=== PATIENT | female | born 1935 | race Hispanic/Latino ===

== ENCOUNTER 2018-01-19 00:46 | Emergency (ER) | payer OTHER ==
[~2018-01-19 00:46] MED LIST: ASPI81TA40 PO; CHOL200074 PO; INSU100I13 SQ; LOSA1TAB37 PO; METO-391 PO
[2018-01-19 01:30] LABS: BASOPHILS % (AUTO) 2.5 % (0.0-5.0); EOSINOPHILS % (AUTO) 2.7 % (0.0-8.0); HEMATOCRIT 34.8 % (36-48); LYMPHOCYTES % (AUTO) 37.7 % (21.0-51.0); MEAN CORPUSCULAR HGB CONC 34.7 g/dL (32.0-36.0); MEAN CORPUSCULAR VOLUME 92.3 fL (79-99); MONOCYTES % (AUTO) 9.1 % (3.0-13.0); PLATELET COUNT (AUTO) 320 K/uL (130-400); RED BLOOD CELL COUNT(AUTO) 3.77 MIL/uL (4.00-5.50); RED CELL DISTRIBUTION WIDTH 13.4 % (11.0-15.5); WHITE BLOOD COUNT (AUTO) 9.1 K/uL (4.8-10.8)
[2018-01-19 01:31] LABS: APPEARANCE,URINE Clear (CLEAR); BILIRUBIN,URINE Negative (NEGATIVE); COLOR,URINE Yellow (YELLOW); GLUCOSE, URINE (UA) Negative (NEGATIVE); KETONES,URINE Negative (NEGATIVE); LEUKOCYTE ESTERASE ,URINE Small (NEGATIVE); NITRATE,URINE Negative (NEGATIVE); OCCULT BLOOD,URINE Negative (NEGATIVE); PH,URINE 6.5 (5.0-8.0); PROTEIN,URINE Negative (NEGATIVE); UROBILINOGEN,URINE 0.2 mg/dL (0.2-1.0)
[2018-01-19 01:44] LABS: CREATININE 1.3 mg/dL (0.5-1.5); POTASSIUM 3.8 mmol/L (3.5-5.1)
[2018-01-19 01:48] LABS: BACTERIA,URINE Few /HPF (None Seen); MUCUS,URINE Moderate LPF (None Seen); RBC,URINE None Seen /HPF (0-1); SQUAMOUS EPITHELIAL CELL,UR Moderate /HPF (0-2)
[2018-01-19 01:56] LABS: INR 0.96 (0.85-1.15); PARTIAL THROMBOPLASTIN TIME 26.5 SEC (26.3-35.5); PROTHROMBIN TIME 10.1 SEC (9.6-11.6)
[2018-01-19 01:59] LABS: ALBUMIN 4.1 g/dL (3.5-5.0); B-TYPE NATRIURETIC PEPTIDE 99 pg/mL (0-100); BILIRUBIN,TOTAL 0.6 mg/dL (0.2-1.0); CREATINE KINASE MB 2.1 ng/mL (0.5-3.6); TOTAL PROTEIN, SERUM 8.4 g/dL (6.0-8.3)
== END 2018-01-19 02:19 | disposition home or self-care (01) ==
LOC: EDH 00:46
DX: I16.9 Hypertensive crisis, unspecified (principal); N28.9 Disorder of kidney and ureter, unspecified; E11.9 Type 2 diabetes mellitus without complications; E07.9 Disorder of thyroid, unspecified; Z88.0 Allergy status to penicillin; Z88.2 Allergy status to sulfonamides
CPT/HCPCS: 36415; 71045; 80053; 81001; 82550; 82553; 83880; 84484; 85025; 85610; 85730; 93005

== ENCOUNTER 2019-04-18 21:48 | Emergency (ER) | payer OTHER ==
[2019-04-18 22:42] LABS: BASOPHILS % (AUTO) 0.4 % (0.0-5.0); EOSINOPHILS % (AUTO) 1.9 % (0.0-8.0); HEMATOCRIT 35.4 % (36-48); LYMPHOCYTES % (AUTO) 26.2 % (21.0-51.0); MEAN CORPUSCULAR HEMOGLOBIN 31.6 pg (27.0-33.0); MEAN CORPUSCULAR HGB CONC 34.1 g/dL (32.0-36.0); MEAN CORPUSCULAR VOLUME 92.7 fL (79-99); MONOCYTES % (AUTO) 7.7 % (3.0-13.0); NEUTROPHILS % (AUTO) 63.8 % (40.0-77.0); PLATELET COUNT (AUTO) 258 K/uL (130-400); RED BLOOD CELL COUNT(AUTO) 3.82 MIL/uL (4.00-5.50); RED CELL DISTRIBUTION WIDTH 13.6 % (11.0-15.5); WHITE BLOOD COUNT (AUTO) 7.7 K/uL (4.8-10.8)
[2019-04-18 22:43] LABS: BILIRUBIN,URINE Negative (NEGATIVE); COLOR,URINE Yellow (YELLOW); GLUCOSE, URINE (UA) 500 mg/dL (NEGATIVE); KETONES,URINE Negative (NEGATIVE); LEUKOCYTE ESTERASE ,URINE Trace (NEGATIVE); NITRATE,URINE Negative (NEGATIVE); OCCULT BLOOD,URINE Nonhemolyzed Trace (NEGATIVE); PROTEIN,URINE POS 1+ mg/dL (NEGATIVE)
[2019-04-18 22:46] LABS: APPEARANCE,URINE CLEAR (CLEAR)
[2019-04-18 22:55] LABS: CREATININE 1.1 mg/dL (0.5-1.5); POTASSIUM 4.1 mmol/L (3.5-5.1)
[2019-04-18 22:59] LABS: ALBUMIN 3.9 g/dL (3.5-5.0); BILIRUBIN,TOTAL 0.7 mg/dL (0.2-1.0); TOTAL PROTEIN, SERUM 7.6 g/dL (6.0-8.3)
[2019-04-18 23:06] LABS: BACTERIA,URINE Rare /HPF (None Seen); RBC,URINE 0-1 /HPF (0-1)
[2019-04-18] MEDS ORDERED: SODIUM CHLORIDE 0.9% 500ML 500 ML IV ONE (23:18)
== END 2019-04-19 03:00 | disposition home or self-care (01) ==
LOC: EDH 21:48
DX: F43.22 Adjustment disorder with anxiety (principal); F32.89 Other specified depressive episodes; R55 Syncope and collapse; I10 Essential (primary) hypertension; E11.9 Type 2 diabetes mellitus without complications; E07.9 Disorder of thyroid, unspecified; Z88.0 Allergy status to penicillin; Z88.2 Allergy status to sulfonamides
CPT/HCPCS: 36415; 80053; 81001; 82550; 83605; 84484 ×2; 85025; 93005 ×2; 96360; 99285; J7040

== ENCOUNTER → 2020-03-10 | Outpatient (CLI) | payer OTHER | END | disposition home or self-care (01) | LOC: RAH 13:16 | PROVIDERS: ATTEND Internal Medicine | DX: I77.1 Stricture of artery (principal); E11.51 Type 2 diabetes mellitus with diabetic peripheral angiopathy without gangrene | CPT/HCPCS: 93926 ==

== ENCOUNTER 2020-10-09 19:28 | Inpatient (IN) | payer OTHER ==
[~2020-10-09] VITALS: Ht 149.9 cm; Wt 52.3 kg
[~2020-10-09 19:28] MED LIST changes: +CHLO25TA3 PO; -CHOL200074 PO; +CHOL500051 PO; +DOXY100T2 PO; +FLUC200T8 PO; +INSLAN SQ; -INSU100I13 SQ; +LEVO50TA11 PO; +LEVO750T46 PO; -LOSA1TAB37 PO; +VALS320T16 PO
[2020-10-09 19:52] LABS: BASOPHILS % (AUTO) 0.3 % (0.0-5.0); EOSINOPHILS % (AUTO) 0.1 % (0.0-8.0); LYMPHOCYTES % (AUTO) 6.6 % (21.0-51.0); MEAN CORPUSCULAR HGB CONC 36.2 g/dL (32.0-36.0); MEAN CORPUSCULAR VOLUME 82.9 fL (79-99); NEUTROPHILS % (AUTO) 76.4 % (40.0-77.0); NUCLEATED RED BLOOD CELLS 0.2 % (0.0-0.19); PLATELET COUNT (AUTO) 540 K/uL (130-400); RED CELL DISTRIBUTION WIDTH 12.5 % (11.0-15.5)
[2020-10-09 20:01] LABS: HEMATOCRIT 17.4 % (36-48)
[2020-10-09 20:02] LABS: WHITE BLOOD COUNT (AUTO) 31.3 K/uL (4.8-10.8)
[2020-10-09 20:08] LABS: INR 1.43 (0.85-1.15); PROTHROMBIN TIME 14.8 SEC (9.6-11.6)
[2020-10-09 20:10] LABS: PARTIAL THROMBOPLASTIN TIME 40.9 SEC (26.3-35.5)
[2020-10-09 20:18] LABS: ALBUMIN 2.5 g/dL (3.5-5.0); BILIRUBIN,TOTAL 1.7 mg/dL (0.2-1.0); CREATININE 1.3 mg/dL (0.5-1.5); TOTAL PROTEIN, SERUM 5.9 g/dL (6.0-8.3)
[2020-10-09 20:44] LABS: BAND NEUTROPHILS % (MANUAL) 14 % (0-2); EOSINOPHILS % (MANUAL) 1 % (1-6); LYMPHOCYTES % (MANUAL) 4 % (22-44); MAN.DIFF COMMENT-IMPRESSION MANUAL DIFFERENTIAL; MONOCYTES % (MANUAL) 4 % (2-9); SEGMENTED NEUTROPHILS % 77 % (40-70)
[2020-10-09] MEDS ORDERED: NITROGLYCERIN 0.4 MG SL TAB SL PRN (23:30)
[2020-10-09] MEDS ORDERED: LACTULOSE 20 GM/30 ML UDCUP PO PRN (23:30)
[2020-10-09] MEDS ORDERED: ONDANSETRON 4MG INJ IV PRN (23:30)
[2020-10-09] MEDS ORDERED: HYDRALAZINE 20MG/ML VIAL IV PRN (23:30)
[2020-10-09] MEDS ORDERED: ACETAMINOPHEN 325 MG TAB PO PRN (23:30)
[2020-10-09] MEDS: SODIUM CHLORIDE 3% 500 ML IV SCH (23:30)
[2020-10-09] MEDS ORDERED: MAG/ALUM/SIMETH 30 ML UDCUP PO PRN (23:30)
[2020-10-09] MEDS ORDERED: VANCOMYCIN 1G/250ML KIT 250 ML IV SCH (23:30)
[2020-10-09] MEDS ORDERED: DiphenhydrAMINE HCL 50 MG/ML VIAL IV PRN (23:30)
[2020-10-09] MEDS ORDERED: MAGNESIUM 2GM PREMIX 50ML 50 ML IV PRN (23:30)
[2020-10-09] MEDS ORDERED: GUAIFENESIN-DM 200/20 MG 10 ML PO PRN (23:30)
[2020-10-10] MEDS ORDERED: VANCOMYCIN 1G/250ML KIT 250 ML IV ONE (00:24)
[2020-10-10] MEDS ORDERED: MEROPENEM 1 GM VIAL ONE ×2 (00:24→21:02)
[2020-10-10] MEDS ORDERED: HYDRALAZINE 20MG/ML VIAL ONE (00:26)
[2020-10-10] MEDS ORDERED: 0.9%NACL 100ML 100 ML IV ONE (00:27)
[2020-10-10 00:43] LABS: B-TYPE NATRIURETIC PEPTIDE 1964 pg/mL (0-100)
[2020-10-10 02:00] LABS: APPEARANCE,URINE Clear (CLEAR); BILIRUBIN,URINE Negative (NEGATIVE); COLOR,URINE Yellow (YELLOW); GLUCOSE, URINE (UA) >=1000 mg/dL (NEGATIVE); KETONES,URINE Negative (NEGATIVE); LEUKOCYTE ESTERASE ,URINE Trace (NEGATIVE); NITRATE,URINE Negative (NEGATIVE); OCCULT BLOOD,URINE Large (NEGATIVE); PROTEIN,URINE POS 2+ mg/dL (NEGATIVE)
[2020-10-10 02:02] LABS: CREATININE,URINE RANDOM 58 mg/dL (30-135); POTASSIUM,URINE RANDOM 27 mmol/L (25-125); SODIUM,URINE RANDOM < 15 mmol/l (40-220)
[2020-10-10 02:17] LABS: BACTERIA,URINE None Seen /HPF (None Seen); RBC,URINE TNTC /HPF (0-1); WBC,URINE 0-1 /HPF (0-1)
[2020-10-10 03:19] LABS: BASOPHILS % (AUTO) 0.2 % (0.0-5.0); EOSINOPHILS % (AUTO) 0.5 % (0.0-8.0); LYMPHOCYTES % (AUTO) 5.5 % (21.0-51.0); MEAN CORPUSCULAR HEMOGLOBIN 30.8 pg (27.0-33.0); MEAN CORPUSCULAR HGB CONC 37.2 g/dL (32.0-36.0); MEAN CORPUSCULAR VOLUME 82.8 fL (79-99); MONOCYTES % (AUTO) 8.4 % (3.0-13.0); NEUTROPHILS % (AUTO) 78.9 % (40.0-77.0); NUCLEATED RED BLOOD CELLS 0.2 % (0.0-0.19); PLATELET COUNT (AUTO) 493 K/uL (130-400); RED BLOOD CELL COUNT(AUTO) 1.98 MIL/uL (4.00-5.50); RED CELL DISTRIBUTION WIDTH 12.7 % (11.0-15.5); WHITE BLOOD COUNT (AUTO) 29.3 K/uL (4.8-10.8)
[2020-10-10 03:23] LABS: HEMATOCRIT 16.4 % (36-48)
[2020-10-10 03:39] LABS: INR 1.5 (0.85-1.15); PROTHROMBIN TIME 15.5 SEC (9.6-11.6)
[2020-10-10 03:40] LABS: PARTIAL THROMBOPLASTIN TIME 41.7 SEC (26.3-35.5)
[2020-10-10] MEDS: FUROSEMIDE 20MG VIAL IV SCH (03:45)
[2020-10-10 03:46] LABS: ALBUMIN 2.4 g/dL (3.5-5.0); BILIRUBIN,TOTAL 1.9 mg/dL (0.2-1.0); CREATININE 1.4 mg/dL (0.5-1.5); MAGNESIUM 2.6 mg/dL (1.80-2.40); POTASSIUM 4.1 mmol/L (3.5-5.1); THYROID STIMULATING HORMONE 1.18 uIU/mL (0.36-3.74); TOTAL PROTEIN, SERUM 5.4 g/dL (6.0-8.3)
[2020-10-10] MEDS ORDERED: FUROSEMIDE 20MG VIAL ONE (05:37)
[2020-10-10] MEDS: LEVOTHYROXINE 50 MCG TABLET PO SCH (07:30)
[2020-10-10] MEDS: FAMOTIDINE 20MG VIAL IV SCH ×2 (09:00→21:00)
[2020-10-10] MEDS: FLUCONAZOLE 200 MG/NS 100 ML 100 ML IV SCH (09:00)
[2020-10-10] MEDS ORDERED: FAMOTIDINE 20MG VIAL IV ONE ×2 (09:19→21:02)
[2020-10-10] MEDS ORDERED: FLUCONAZOLE 200 MG/NS 100 ML 100 ML ONE (09:19)
[2020-10-10] MEDS ORDERED: COMPOUND IV REFRIGERATED 1 EACH IVSOLN MISC PRN (13:45)
[2020-10-10] MEDS: MEROPENEM 1 GM VIAL IVP SCH ×2 (14:00→22:00)
[2020-10-10] MEDS ORDERED: VANCOMYCIN 750MG + NS 250 ML IV SCH ×2 (14:00)
[2020-10-10] MEDS ORDERED: DESMOPRESSIN IJ SCH (18:00)
[2020-10-10] MEDS ORDERED: [UNRECOGNIZED DRUG - OTHER] IJ SCH (18:00)
[2020-10-10 19:17] LABS: HEMATOCRIT 21.8 % (36-48)
[2020-10-10] MEDS ORDERED: PHYTONADIONE 10 MG/1 ML AMP SQ SCH (19:20)
[2020-10-10] MEDS: DESMOPRESSIN IJ SCH (19:30)
[2020-10-10] MEDS: [UNRECOGNIZED DRUG - OTHER] IJ SCH (19:30)
[2020-10-10] MEDS ORDERED: PHYTONADIONE 10 MG/1 ML AMP ONE (21:02)
[2020-10-10] MEDS: SODIUM CHLORIDE 3% 500 ML IV SCH (23:30)
[2020-10-11] VITALS (26 sets, daily range): BP systolic 142–175; BP diastolic 55–76
[2020-10-11] MEDS: FUROSEMIDE 20MG VIAL IV SCH (03:37)
[2020-10-11 06:52] LABS: BASOPHILS % (AUTO) 0.4 % (0.0-5.0); EOSINOPHILS % (AUTO) 0.9 % (0.0-8.0); HEMATOCRIT 21.7 % (36-48); LYMPHOCYTES % (AUTO) 6.2 % (21.0-51.0); MEAN CORPUSCULAR HEMOGLOBIN 30.6 pg (27.0-33.0); MEAN CORPUSCULAR HGB CONC 36.4 g/dL (32.0-36.0); MEAN CORPUSCULAR VOLUME 84.1 fL (79-99); MONOCYTES % (AUTO) 9.6 % (3.0-13.0); NEUTROPHILS % (AUTO) 77.8 % (40.0-77.0); NUCLEATED RED BLOOD CELLS 0.1 % (0.0-0.19); PLATELET COUNT (AUTO) 428 K/uL (130-400); RED BLOOD CELL COUNT(AUTO) 2.58 MIL/uL (4.00-5.50); WHITE BLOOD COUNT (AUTO) 22.3 K/uL (4.8-10.8)
[2020-10-11 07:19] LABS: ALBUMIN 2.2 g/dL (3.5-5.0); BILIRUBIN,TOTAL 2.2 mg/dL (0.2-1.0); MAGNESIUM 2.1 mg/dL (1.80-2.40); PHOSPHORUS 2.1 mg/dL (2.5-4.9); TOTAL PROTEIN, SERUM 5.2 g/dL (6.0-8.3)
[2020-10-11 07:22] LABS: POTASSIUM 2.8 mmol/L (3.5-5.1)
[2020-10-11 07:24] LABS: INR 1.28 (0.85-1.15); PROTHROMBIN TIME 13.4 SEC (9.6-11.6)
[2020-10-11] MEDS: MEROPENEM 1 GM VIAL IVP SCH ×3 (07:24→22:35)
[2020-10-11 07:25] LABS: PARTIAL THROMBOPLASTIN TIME 38.7 SEC (26.3-35.5)
[2020-10-11] MEDS: LEVOTHYROXINE 50 MCG TABLET PO SCH (07:30)
[2020-10-11] MEDS ORDERED: LIDOCAINE HCL-MPF 1% 2ML VIAL IV PRN (09:30)
[2020-10-11] MEDS ORDERED: GLUCAGON 1MG KIT 1 MG ML IM PRN (09:30)
[2020-10-11] MEDS: FLUCONAZOLE 200 MG/NS 100 ML 100 ML IV SCH (09:47)
[2020-10-11] MEDS: FAMOTIDINE 20MG VIAL IV SCH ×2 (09:47→20:24)
[2020-10-11] MEDS ORDERED: 0.9% NACL 500ML IV.SOLN 500 ML IV ONE (09:56)
[2020-10-11] MEDS ORDERED: 0.9% NACL 500ML IV.SOLN 500 ML IV PRN (10:00)
[2020-10-11] MEDS: POTASSIUM CHLORIDE 20MEQ/100ML 100 ML IV PRN ×2 (11:09→14:12)
[2020-10-11] MEDS ORDERED: MAGNESIUM HYDROXIDE 30 ML/UDCUP PO SCH (11:15)
[2020-10-11] MEDS: INSULIN HUMULIN R 100 UNIT/ML 3ML SQ SCH ×2 (11:46→18:00)
[2020-10-11] MEDS: DEXTROSE 50%-WATER 50 ML DISP.SYRIN IV PRN (12:06)
[2020-10-11 12:26] LABS: HEMATOCRIT 22.3 % (36-48)
[2020-10-11] MEDS: VANCOMYCIN 1G/250ML KIT 250 ML IV SCH (14:43)
[2020-10-11] MEDS: [UNRECOGNIZED DRUG - OTHER] IJ SCH (19:30)
[2020-10-11] MEDS: DESMOPRESSIN IJ SCH (19:30)
[2020-10-11] MEDS ORDERED: 0.9%NACL 10ML VIAL ONE (22:28)
[2020-10-11] MEDS: SODIUM CHLORIDE 3% 500 ML IV SCH (23:30)
[2020-10-12] VITALS (25 sets, daily range): BP systolic 158–184; BP diastolic 63–83
[2020-10-12 03:45] LABS: HEMATOCRIT 24.9 % (36-48); MEAN CORPUSCULAR HEMOGLOBIN 31.3 pg (27.0-33.0); MEAN CORPUSCULAR HGB CONC 36.1 g/dL (32.0-36.0); MEAN CORPUSCULAR VOLUME 86.5 fL (79-99); NUCLEATED RED BLOOD CELLS 0.2 % (0.0-0.19); RED BLOOD CELL COUNT(AUTO) 2.88 MIL/uL (4.00-5.50); RED CELL DISTRIBUTION WIDTH 13.6 % (11.0-15.5)
[2020-10-12 04:09] LABS: PHOSPHORUS 1.6 mg/dL (2.5-4.9)
[2020-10-12 04:21] LABS: INR 1.17 (0.85-1.15); PROTHROMBIN TIME 12.3 SEC (9.6-11.6)
[2020-10-12 04:23] LABS: PARTIAL THROMBOPLASTIN TIME 35.3 SEC (26.3-35.5)
[2020-10-12] MEDS: FUROSEMIDE 20MG VIAL IV SCH (04:54)
[2020-10-12 05:50] LABS: CREATININE 0.9 mg/dL (0.5-1.5); POTASSIUM 3.4 mmol/L (3.5-5.1)
[2020-10-12] MEDS: INSULIN HUMULIN R 100 UNIT/ML 3ML SQ SCH ×5 (06:00→23:42)
[2020-10-12] MEDS: POTASSIUM CHLORIDE 20MEQ/100ML 100 ML IV PRN (06:17)
[2020-10-12] MEDS: MEROPENEM 1 GM VIAL IVP SCH ×3 (06:18→21:07)
[2020-10-12] MEDS: LEVOTHYROXINE 50 MCG TABLET PO SCH (07:28)
[2020-10-12] MEDS: FLUCONAZOLE 200 MG/NS 100 ML 100 ML IV SCH (09:19)
[2020-10-12] MEDS: FAMOTIDINE 20MG VIAL IV SCH ×2 (09:19→21:07)
[2020-10-12] MEDS ORDERED: POTASSIUM PHOSPHATE 15 MMOL in 0.9% NACL 250ML 250 ML IV PRN (09:30)
[2020-10-12 12:09] LABS: HEMATOCRIT 28.3 % (36-48)
[2020-10-12] MEDS: VANCOMYCIN 1G/250ML KIT 250 ML IV SCH (14:39)
[2020-10-12] MEDS: [UNRECOGNIZED DRUG - OTHER] IJ SCH (19:30)
[2020-10-12] MEDS: DESMOPRESSIN IJ SCH (19:30)
[2020-10-12] MEDS ORDERED: 0.9%NACL 10ML VIAL ONE (20:43)
[2020-10-12] MEDS: SODIUM CHLORIDE 3% 500 ML IV SCH (23:30)
[2020-10-13] VITALS (20 sets, daily range): BP systolic 140–182; BP diastolic 71–110
[2020-10-13 03:19] LABS: BASOPHILS % (AUTO) 0.6 % (0.0-5.0); EOSINOPHILS % (AUTO) 1.9 % (0.0-8.0); HEMATOCRIT 27.8 % (36-48); LYMPHOCYTES % (AUTO) 11.4 % (21.0-51.0); MEAN CORPUSCULAR HEMOGLOBIN 30.4 pg (27.0-33.0); MEAN CORPUSCULAR HGB CONC 34.9 g/dL (32.0-36.0); MEAN CORPUSCULAR VOLUME 87.1 fL (79-99); MONOCYTES % (AUTO) 13.6 % (3.0-13.0); NEUTROPHILS % (AUTO) 65.9 % (40.0-77.0); NUCLEATED RED BLOOD CELLS 0.2 % (0.0-0.19); PLATELET COUNT (AUTO) 387 K/uL (130-400); RED BLOOD CELL COUNT(AUTO) 3.19 MIL/uL (4.00-5.50); RED CELL DISTRIBUTION WIDTH 14.4 % (11.0-15.5); WHITE BLOOD COUNT (AUTO) 12.9 K/uL (4.8-10.8)
[2020-10-13 03:35] LABS: BILIRUBIN,TOTAL 1.1 mg/dL (0.2-1.0); MAGNESIUM 2.2 mg/dL (1.80-2.40); PHOSPHORUS 2.3 mg/dL (2.5-4.9); POTASSIUM 3.9 mmol/L (3.5-5.1); TOTAL PROTEIN, SERUM 5.1 g/dL (6.0-8.3)
[2020-10-13] MEDS: FUROSEMIDE 20MG VIAL IV SCH ×2 (03:45→20:06)
[2020-10-13] MEDS ORDERED: 0.9%NACL 10ML VIAL ONE (06:40)
[2020-10-13] MEDS: LEVOTHYROXINE 50 MCG TABLET PO SCH (06:48)
[2020-10-13] MEDS: MEROPENEM 1 GM VIAL IVP SCH ×3 (06:48→21:07)
[2020-10-13] MEDS: INSULIN HUMULIN R 100 UNIT/ML 3ML SQ SCH ×3 (06:50→17:20)
[2020-10-13] MEDS: FLUCONAZOLE 200 MG/NS 100 ML 100 ML IV SCH (08:05)
[2020-10-13] MEDS: FAMOTIDINE 20MG VIAL IV SCH ×2 (08:05→21:07)
[2020-10-13] MEDS: ASPIRIN 81MG CHEW TAB PO SCH (10:01)
[2020-10-13] MEDS: METOPROLOL SUCCINATE 50 MG TAB.SR.24H PO SCH ×2 (10:01→21:07)
[2020-10-13] MEDS ORDERED: CLONIDINE HCL 0.1 MG TABLET PO PRN (12:30)
[2020-10-13] MEDS: VANCOMYCIN 1G/250ML KIT 250 ML IV SCH (13:08)
[2020-10-13] MEDS: HYDRALAZINE 25MG TABLET PO SCH ×2 (13:15→21:07)
[2020-10-13] MEDS: SODIUM CHLORIDE 3% 500 ML IV SCH (20:06)
[2020-10-13] MEDS ORDERED: METOPROLOL SUCCINATE 50 MG TAB.SR.24H PO SCH (21:00)
[2020-10-14 04:00] VITALS: BP 164/74
[2020-10-14] MEDS: ACETAMINOPHEN 325 MG TAB PO PRN ×2 (04:47→20:12)
[2020-10-14] MEDS: MEROPENEM 1 GM VIAL IVP SCH ×3 (05:08→21:22)
[2020-10-14] MEDS: LEVOTHYROXINE 50 MCG TABLET PO SCH (05:08)
[2020-10-14] MEDS: HYDRALAZINE 25MG TABLET PO SCH ×3 (05:09→21:23)
[2020-10-14 05:34] LABS: BASOPHILS % (AUTO) 0.6 % (0.0-5.0); EOSINOPHILS % (AUTO) 2.7 % (0.0-8.0); HEMATOCRIT 27.2 % (36-48); LYMPHOCYTES % (AUTO) 14.4 % (21.0-51.0); MEAN CORPUSCULAR HEMOGLOBIN 30.2 pg (27.0-33.0); MEAN CORPUSCULAR HGB CONC 33.8 g/dL (32.0-36.0); MEAN CORPUSCULAR VOLUME 89.2 fL (79-99); MONOCYTES % (AUTO) 15.1 % (3.0-13.0); NEUTROPHILS % (AUTO) 61.3 % (40.0-77.0); NUCLEATED RED BLOOD CELLS 0.2 % (0.0-0.19); PLATELET COUNT (AUTO) 345 K/uL (130-400); RED BLOOD CELL COUNT(AUTO) 3.05 MIL/uL (4.00-5.50); RED CELL DISTRIBUTION WIDTH 14.7 % (11.0-15.5); WHITE BLOOD COUNT (AUTO) 9.3 K/uL (4.8-10.8)
[2020-10-14 05:59] LABS: ALBUMIN 1.8 g/dL (3.5-5.0); BILIRUBIN,TOTAL 0.8 mg/dL (0.2-1.0); MAGNESIUM 2.7 mg/dL (1.80-2.40); PHOSPHORUS 2.4 mg/dL (2.5-4.9); POTASSIUM 4.1 mmol/L (3.5-5.1); TOTAL PROTEIN, SERUM 4.9 g/dL (6.0-8.3)
[2020-10-14 06:01] LABS: INR 1.04 (0.85-1.15); PROTHROMBIN TIME 11.1 SEC (9.6-11.6)
[2020-10-14] MEDS: INSULIN HUMULIN R 100 UNIT/ML 3ML SQ SCH ×4 (06:04→17:58)
[2020-10-14 07:57] VITALS: BP 147/57
[2020-10-14] MEDS: FAMOTIDINE 20MG VIAL IV SCH ×2 (08:44→19:59)
[2020-10-14] MEDS: FLUCONAZOLE 200 MG/NS 100 ML 100 ML IV SCH (08:44)
[2020-10-14] MEDS: ASPIRIN 81MG CHEW TAB PO SCH (08:44)
[2020-10-14] MEDS: SODIUM CHLORIDE 1,000 MG TAB PO SCH ×3 (08:44→19:59)
[2020-10-14] MEDS: METOPROLOL SUCCINATE 50 MG TAB.SR.24H PO SCH ×2 (08:45→19:59)
[2020-10-14] MEDS ORDERED: ASPIRIN 81 MG EC TAB PO SCH (09:00)
[2020-10-14 11:44] VITALS: BP 150/66
[2020-10-14] MEDS: VANCOMYCIN 1G/250ML KIT 250 ML IV SCH (14:28)
[2020-10-14 15:37] VITALS: BP 162/69
[2020-10-14] MEDS: FUROSEMIDE 20MG VIAL IV SCH (19:28)
[2020-10-14] MEDS: SODIUM CHLORIDE 3% 500 ML IV SCH (19:28)
[2020-10-14 19:31] VITALS: BP 161/71
[2020-10-14 23:36] VITALS: BP 152/68
[2020-10-15] VITALS (12 sets, daily range): BP systolic 150–175; BP diastolic 66–87
[2020-10-15] MEDS: INSULIN HUMULIN R 100 UNIT/ML 3ML SQ SCH ×4 (00:22→17:47)
[2020-10-15] MEDS: MEROPENEM 1 GM VIAL IVP SCH ×3 (05:09→21:40)
[2020-10-15] MEDS: LEVOTHYROXINE 50 MCG TABLET PO SCH (05:10)
[2020-10-15] MEDS: HYDRALAZINE 25MG TABLET PO SCH ×3 (05:10→21:40)
[2020-10-15 05:53] LABS: BASOPHILS % (AUTO) 0.5 % (0.0-5.0); EOSINOPHILS % (AUTO) 3.3 % (0.0-8.0); HEMATOCRIT 26.9 % (36-48); LYMPHOCYTES % (AUTO) 17.9 % (21.0-51.0); MEAN CORPUSCULAR HEMOGLOBIN 30.1 pg (27.0-33.0); MEAN CORPUSCULAR HGB CONC 33.1 g/dL (32.0-36.0); MEAN CORPUSCULAR VOLUME 90.9 fL (79-99); MONOCYTES % (AUTO) 11.9 % (3.0-13.0); NEUTROPHILS % (AUTO) 61.2 % (40.0-77.0); PLATELET COUNT (AUTO) 292 K/uL (130-400); RED BLOOD CELL COUNT(AUTO) 2.96 MIL/uL (4.00-5.50); RED CELL DISTRIBUTION WIDTH 15.1 % (11.0-15.5); WHITE BLOOD COUNT (AUTO) 8.9 K/uL (4.8-10.8)
[2020-10-15 06:00] LABS: ALBUMIN 1.8 g/dL (3.5-5.0); BILIRUBIN,TOTAL 0.8 mg/dL (0.2-1.0); MAGNESIUM 2.3 mg/dL (1.80-2.40); PHOSPHORUS 2.7 mg/dL (2.5-4.9); TOTAL PROTEIN, SERUM 5.1 g/dL (6.0-8.3)
[2020-10-15] MEDS: FAMOTIDINE 20MG VIAL IV SCH ×2 (08:12→21:39)
[2020-10-15] MEDS: FLUCONAZOLE 200 MG/NS 100 ML 100 ML IV SCH (08:12)
[2020-10-15] MEDS: ASPIRIN 81MG CHEW TAB PO SCH (08:12)
[2020-10-15] MEDS: METOPROLOL SUCCINATE 50 MG TAB.SR.24H PO SCH (08:12)
[2020-10-15] MEDS: SODIUM CHLORIDE 1,000 MG TAB PO SCH ×3 (08:13→21:40)
[2020-10-15] MEDS: VANCOMYCIN 1G/250ML KIT 250 ML IV SCH (14:04)
[2020-10-15 16:46] LABS: ABG BASE EXCESS 5.9 mmol/L (-2.0-3.0); ABG HCO3 32.7 mmol/L (21.0-28.0); ABG OXYGEN SATURATION 89.7 % (95.0-99.0); ABG PCO2 60 mmHg (32-45)
[2020-10-15 18:01] LABS: ABG HCO3 31.2 mmol/L (21.0-28.0); ABG OXYGEN SATURATION 99.5 % (95.0-99.0); ABG PCO2 47 mmHg (32-45)
[2020-10-15] MEDS ORDERED: IOHEXOL 350 MG/ML 100ML INFUS..BTL IV ONE (20:16)
[2020-10-15] MEDS: METOPROLOL TARTRATE 50 MG TAB PO SCH (21:41)
[2020-10-15] MEDS: SODIUM CHLORIDE 3% 500 ML IV SCH (23:30)
[2020-10-16] VITALS (25 sets, daily range): BP systolic 125–182; BP diastolic 57–99
[2020-10-16] MEDS: FUROSEMIDE 20MG VIAL IV SCH ×2 (00:06→14:02)
[2020-10-16] MEDS: MEROPENEM 1 GM VIAL IVP SCH ×3 (05:08→21:02)
[2020-10-16] MEDS: HYDRALAZINE 25MG TABLET PO SCH ×3 (05:09→23:07)
[2020-10-16] MEDS: INSULIN HUMULIN R 100 UNIT/ML 3ML SQ SCH ×4 (06:21→17:20)
[2020-10-16 06:27] LABS: BASOPHILS % (AUTO) 0.2 % (0.0-5.0); EOSINOPHILS % (AUTO) 0.1 % (0.0-8.0); HEMATOCRIT 27.1 % (36-48); LYMPHOCYTES % (AUTO) 9.4 % (21.0-51.0); MEAN CORPUSCULAR HEMOGLOBIN 30.5 pg (27.0-33.0); MEAN CORPUSCULAR HGB CONC 32.8 g/dL (32.0-36.0); MEAN CORPUSCULAR VOLUME 92.8 fL (79-99); MONOCYTES % (AUTO) 10.8 % (3.0-13.0); NEUTROPHILS % (AUTO) 76.7 % (40.0-77.0); PLATELET COUNT (AUTO) 266 K/uL (130-400); RED BLOOD CELL COUNT(AUTO) 2.92 MIL/uL (4.00-5.50); RED CELL DISTRIBUTION WIDTH 15.3 % (11.0-15.5); WHITE BLOOD COUNT (AUTO) 14.2 K/uL (4.8-10.8)
[2020-10-16 06:40] LABS: CREATININE 1.1 mg/dL (0.5-1.5); POTASSIUM 4.5 mmol/L (3.5-5.1)
[2020-10-16] MEDS ORDERED: FUROSEMIDE 100MG VIAL IV SCH (07:47)
[2020-10-16] MEDS: FAMOTIDINE 20MG VIAL IV SCH ×2 (08:01→21:01)
[2020-10-16] MEDS: METOPROLOL TARTRATE 50 MG TAB PO SCH ×2 (08:01→21:01)
[2020-10-16] MEDS: LEVOTHYROXINE 50 MCG TABLET PO SCH (08:01)
[2020-10-16] MEDS: ASPIRIN 81MG CHEW TAB PO SCH (08:02)
[2020-10-16] MEDS: FLUCONAZOLE 200 MG/NS 100 ML 100 ML IV SCH (08:02)
[2020-10-16] MEDS: SODIUM CHLORIDE 1,000 MG TAB PO SCH ×3 (08:19→21:01)
[2020-10-16 09:03] LABS: ABG BASE EXCESS 6.3 mmol/L (-2.0-3.0); ABG HCO3 30.9 mmol/L (21.0-28.0); ABG PCO2 44 mmHg (32-45)
[2020-10-16 10:15] LABS: ALBUMIN 2.3 g/dL (3.5-5.0); BILIRUBIN,DIRECT 0.5 mg/dL (0.0-0.3); BILIRUBIN,TOTAL 1.3 mg/dL (0.2-1.0); TOTAL PROTEIN, SERUM 6.3 g/dL (6.0-8.3)
[2020-10-16 10:25] LABS: CRP QUANTITATIVE 194.8 mg/L (0.00-9.0)
[2020-10-16] MEDS: IPRATROPIUM/ALBUTEROL SULFATE 3 ML SOLUTION IH SCH ×2 (11:28→18:00)
[2020-10-16] MEDS: VANCOMYCIN 1G/250ML KIT 250 ML IV SCH (14:03)
[2020-10-16] MEDS: QUETIAPINE FUMARATE 25 MG TAB PO PRN (21:01)
[2020-10-17] VITALS (23 sets, daily range): BP systolic 140–188; BP diastolic 59–91
[2020-10-17] MEDS: INSULIN HUMULIN R 100 UNIT/ML 3ML SQ SCH ×4 (00:17→17:53)
[2020-10-17 00:47] LABS: MAGNESIUM 2.6 mg/dL (1.80-2.40); POTASSIUM 3.8 mmol/L (3.5-5.1)
[2020-10-17] MEDS: FUROSEMIDE 20MG VIAL IV SCH (02:01)
[2020-10-17] MEDS: MEROPENEM 1 GM VIAL IVP SCH ×3 (05:38→22:27)
[2020-10-17] MEDS: IPRATROPIUM/ALBUTEROL SULFATE 3 ML SOLUTION IH SCH ×2 (06:00→07:17)
[2020-10-17] MEDS: HYDRALAZINE 25MG TABLET PO SCH ×3 (06:14→22:27)
[2020-10-17 06:34] LABS: HEMATOCRIT 23.8 % (36-48); MEAN CORPUSCULAR HGB CONC 32.4 g/dL (32.0-36.0); MEAN CORPUSCULAR VOLUME 92.6 fL (79-99); RED BLOOD CELL COUNT(AUTO) 2.57 MIL/uL (4.00-5.50); RED CELL DISTRIBUTION WIDTH 15.3 % (11.0-15.5); WHITE BLOOD COUNT (AUTO) 14.8 K/uL (4.8-10.8)
[2020-10-17] MEDS: LEVOTHYROXINE 50 MCG TABLET PO SCH (07:45)
[2020-10-17] MEDS: SODIUM CHLORIDE 1,000 MG TAB PO SCH ×3 (08:05→22:29)
[2020-10-17] MEDS: ASPIRIN 81MG CHEW TAB PO SCH (08:05)
[2020-10-17] MEDS: METOPROLOL TARTRATE 50 MG TAB PO SCH (08:05)
[2020-10-17] MEDS: QUETIAPINE FUMARATE 25 MG TAB PO PRN (08:05)
[2020-10-17] MEDS: FLUCONAZOLE 200 MG/NS 100 ML 100 ML IV SCH (08:06)
[2020-10-17] MEDS: FAMOTIDINE 20MG VIAL IV SCH ×2 (08:06→22:26)
[2020-10-17 08:35] LABS: POTASSIUM 3.6 mmol/L (3.5-5.1)
[2020-10-17 08:36] LABS: ALBUMIN 2.2 g/dL (3.5-5.0); BILIRUBIN,TOTAL 1.3 mg/dL (0.2-1.0); CREATININE 1.7 mg/dL (0.5-1.5); TOTAL PROTEIN, SERUM 5.8 g/dL (6.0-8.3)
[2020-10-17 08:46] LABS: CRP QUANTITATIVE 275.3 mg/L (0.00-9.0)
[2020-10-17] MEDS: VANCOMYCIN 1G/250ML KIT 250 ML IV SCH (13:33)
[2020-10-17] MEDS ORDERED: DEXAMETHASONE SOD PHOSPHATE 4 MG/ML 1ML VIAL IVP STA (15:24)
[2020-10-17] MEDS ORDERED: PHARMACY COMMUNICATION MISC SCH (19:00)
[2020-10-17] MEDS: SOLU-MEDROL 40MG VIAL IVP SCH (22:26)
[2020-10-17] MEDS: LINEZOLID 600 MG/ISO-OSM 300 ML IV SCH (22:26)
[2020-10-17] MEDS ORDERED: FUROSEMIDE 40MG VIAL IV SCH (23:45)
[2020-10-18] VITALS (23 sets, daily range): BP systolic 133–174; BP diastolic 52–80
[2020-10-18] MEDS: METOPROLOL TARTRATE 50 MG TAB PO SCH ×3 (00:07→21:00)
[2020-10-18] MEDS: INSULIN HUMULIN R 100 UNIT/ML 3ML SQ SCH ×4 (00:25→17:08)
[2020-10-18] MEDS: SOLU-MEDROL 40MG VIAL IVP SCH ×3 (04:44→20:59)
[2020-10-18] MEDS: MEROPENEM 1 GM VIAL IVP SCH ×3 (05:39→21:00)
[2020-10-18] MEDS: HYDRALAZINE 25MG TABLET PO SCH ×3 (05:40→21:00)
[2020-10-18 06:00] LABS: BASOPHILS % (AUTO) 0.1 % (0.0-5.0); LYMPHOCYTES % (AUTO) 5.5 % (21.0-51.0); MEAN CORPUSCULAR HEMOGLOBIN 29.6 pg (27.0-33.0); MEAN CORPUSCULAR HGB CONC 31.7 g/dL (32.0-36.0); MEAN CORPUSCULAR VOLUME 93.4 fL (79-99); MONOCYTES % (AUTO) 3.4 % (3.0-13.0); NEUTROPHILS % (AUTO) 87.9 % (40.0-77.0); PLATELET COUNT (AUTO) 214 K/uL (130-400); RED BLOOD CELL COUNT(AUTO) 2.57 MIL/uL (4.00-5.50); RED CELL DISTRIBUTION WIDTH 15.5 % (11.0-15.5); WHITE BLOOD COUNT (AUTO) 14.3 K/uL (4.8-10.8)
[2020-10-18 06:23] LABS: CREATININE 2.6 mg/dL (0.5-1.5); POTASSIUM 3.8 mmol/L (3.5-5.1); TOTAL PROTEIN, SERUM 5.7 g/dL (6.0-8.3)
[2020-10-18 06:29] LABS: ABG BASE EXCESS 3.4 mmol/L (-2.0-3.0); ABG HCO3 27.1 mmol/L (21.0-28.0); ABG PCO2 39 mmHg (32-45)
[2020-10-18 06:56] LABS: CRP QUANTITATIVE 327.3 mg/L (0.00-9.0)
[2020-10-18] MEDS ORDERED: RENAL DOSE IV PRN (08:00)
[2020-10-18] MEDS: LINEZOLID 600 MG/ISO-OSM 300 ML IV SCH ×2 (08:29→20:59)
[2020-10-18] MEDS: SODIUM CHLORIDE 1,000 MG TAB PO SCH ×3 (08:30→21:00)
[2020-10-18] MEDS: CLONIDINE HCL 0.1 MG TABLET PO PRN (08:30)
[2020-10-18] MEDS: FLUCONAZOLE 200 MG/NS 100 ML 100 ML IV SCH (08:30)
[2020-10-18] MEDS: LEVOTHYROXINE 50 MCG TABLET PO SCH (08:30)
[2020-10-18] MEDS: ASPIRIN 81MG CHEW TAB PO SCH (08:30)
[2020-10-18] MEDS: FAMOTIDINE 20MG VIAL IV SCH (08:31)
[2020-10-18] MEDS ORDERED: FUROSEMIDE 40MG VIAL IV SCH (09:00)
[2020-10-19] VITALS (22 sets, daily range): BP systolic 133–178; BP diastolic 54–96
[2020-10-19] MEDS: INSULIN HUMULIN R 100 UNIT/ML 3ML SQ SCH ×4 (00:51→16:47)
[2020-10-19] MEDS: SOLU-MEDROL 40MG VIAL IVP SCH ×3 (03:59→16:38)
[2020-10-19 04:52] LABS: BASOPHILS % (AUTO) 0.1 % (0.0-5.0); HEMATOCRIT 25.2 % (36-48); LYMPHOCYTES % (AUTO) 5.1 % (21.0-51.0); MEAN CORPUSCULAR HEMOGLOBIN 30.4 pg (27.0-33.0); MEAN CORPUSCULAR HGB CONC 32.5 g/dL (32.0-36.0); MEAN CORPUSCULAR VOLUME 93.3 fL (79-99); MONOCYTES % (AUTO) 4.3 % (3.0-13.0); NEUTROPHILS % (AUTO) 87.2 % (40.0-77.0); PLATELET COUNT (AUTO) 253 K/uL (130-400); RED CELL DISTRIBUTION WIDTH 15.4 % (11.0-15.5); WHITE BLOOD COUNT (AUTO) 20.8 K/uL (4.8-10.8)
[2020-10-19 04:54] LABS: RETICULOCYTE % (AUTO) 3.59 % (0.42-2.23)
[2020-10-19 05:12] LABS: BILIRUBIN,TOTAL 0.7 mg/dL (0.2-1.0); CREATININE 3.1 mg/dL (0.5-1.5); POTASSIUM 3.8 mmol/L (3.5-5.1)
[2020-10-19 05:20] LABS: CRP QUANTITATIVE 259.8 mg/L (0.00-9.0)
[2020-10-19 05:26] LABS: % IRON SATURATION 12.2 % (22-44)
[2020-10-19] MEDS: HYDRALAZINE 25MG TABLET PO SCH ×3 (05:40→21:38)
[2020-10-19] MEDS: MEROPENEM 1 GM VIAL IVP SCH ×3 (05:40→21:38)
[2020-10-19] MEDS ORDERED: IPRATROPIUM/ALBUTEROL SULFATE 3 ML SOLUTION IH ONE (06:16)
[2020-10-19] MEDS: LEVOTHYROXINE 50 MCG TABLET PO SCH (06:33)
[2020-10-19] MEDS: SODIUM CHLORIDE 1,000 MG TAB PO SCH ×3 (08:26→21:36)
[2020-10-19] MEDS: ASPIRIN 81MG CHEW TAB PO SCH (08:27)
[2020-10-19] MEDS: LINEZOLID 600 MG/ISO-OSM 300 ML IV SCH ×2 (08:27→21:36)
[2020-10-19] MEDS: FLUCONAZOLE 200 MG/NS 100 ML 100 ML IV SCH (08:27)
[2020-10-19] MEDS: FAMOTIDINE 20MG VIAL IV SCH (08:27)
[2020-10-19] MEDS: METOPROLOL TARTRATE 50 MG TAB PO SCH ×2 (08:28→21:36)
[2020-10-19] MEDS: POTASSIUM CHLORIDE 20MEQ/100ML 100 ML IV PRN (11:41)
[2020-10-19] MEDS: CLONIDINE HCL 0.1 MG TABLET PO PRN (16:38)
[2020-10-19 23:05] LABS: ABG BASE EXCESS 0.9 mmol/L (-2.0-3.0); ABG HCO3 25.5 mmol/L (21.0-28.0); ABG OXYGEN SATURATION 86.2 % (95.0-99.0); ABG PCO2 41 mmHg (32-45)
[2020-10-20] VITALS (56 sets, daily range): BP systolic 113–190; BP diastolic 51–98
[2020-10-20] MEDS: INSULIN HUMULIN R 100 UNIT/ML 3ML SQ SCH ×4 (00:38→18:10)
[2020-10-20 00:39] LABS: ABG BASE EXCESS -1.3 mmol/L (-2.0-3.0); ABG OXYGEN SATURATION 88.6 % (95.0-99.0); ABG PCO2 65 mmHg (32-45)
[2020-10-20] MEDS ORDERED: PROPOFOL 1000 MG/100 ML 100 ML IV ONE ×2 (01:31→08:14)
[2020-10-20 03:44] LABS: ABG BASE EXCESS 3.9 mmol/L (-2.0-3.0); ABG HCO3 24.9 mmol/L (21.0-28.0); ABG OXYGEN SATURATION 99.6 % (95.0-99.0); ABG PCO2 28 mmHg (32-45)
[2020-10-20 03:45] LABS: BASOPHILS % (AUTO) 0.1 % (0.0-5.0); HEMATOCRIT 24.5 % (36-48); LYMPHOCYTES % (AUTO) 4.8 % (21.0-51.0); MEAN CORPUSCULAR HEMOGLOBIN 30.5 pg (27.0-33.0); MEAN CORPUSCULAR HGB CONC 33.1 g/dL (32.0-36.0); MEAN CORPUSCULAR VOLUME 92.1 fL (79-99); MONOCYTES % (AUTO) 4.7 % (3.0-13.0); NEUTROPHILS % (AUTO) 88.7 % (40.0-77.0); PLATELET COUNT (AUTO) 230 K/uL (130-400); RED BLOOD CELL COUNT(AUTO) 2.66 MIL/uL (4.00-5.50); RED CELL DISTRIBUTION WIDTH 15.1 % (11.0-15.5); WHITE BLOOD COUNT (AUTO) 15.1 K/uL (4.8-10.8)
[2020-10-20 03:48] LABS: ALBUMIN 1.9 g/dL (3.5-5.0); BILIRUBIN,TOTAL 0.7 mg/dL (0.2-1.0); CREATININE 3.8 mg/dL (0.5-1.5); CRP QUANTITATIVE 171.1 mg/L (0.00-9.0); PHOSPHORUS 4.4 mg/dL (2.5-4.9); POTASSIUM 3.6 mmol/L (3.5-5.1); TOTAL PROTEIN, SERUM 5.4 g/dL (6.0-8.3)
[2020-10-20] MEDS: SOLU-MEDROL 40MG VIAL IVP SCH ×3 (03:49→20:36)
[2020-10-20] MEDS: LEVOTHYROXINE 50 MCG TABLET PO SCH (06:22)
[2020-10-20] MEDS: MEROPENEM 1 GM VIAL IVP SCH ×3 (06:22→21:07)
[2020-10-20] MEDS: HYDRALAZINE 25MG TABLET PO SCH ×3 (06:23→21:07)
[2020-10-20] MEDS: METOPROLOL TARTRATE 50 MG TAB PO SCH ×2 (08:23→20:56)
[2020-10-20] MEDS: SODIUM CHLORIDE 1,000 MG TAB PO SCH ×3 (08:23→20:56)
[2020-10-20] MEDS: FLUCONAZOLE 200 MG/NS 100 ML 100 ML IV SCH (08:23)
[2020-10-20] MEDS: LINEZOLID 600 MG/ISO-OSM 300 ML IV SCH ×2 (08:23→20:36)
[2020-10-20] MEDS: FAMOTIDINE 20MG VIAL IV SCH (08:23)
[2020-10-20] MEDS: POTASSIUM CHLORIDE 20MEQ/100ML 100 ML IV PRN (08:24)
[2020-10-20] MEDS: ASPIRIN 81MG CHEW TAB PO SCH (08:26)
[2020-10-20] MEDS ORDERED: PROPOFOL 1000 MG/100 ML IV PRN (08:30)
[2020-10-20] MEDS: PROPOFOL 1000 MG/100 ML 100 ML IV PRN ×2 (10:35→18:33)
[2020-10-21] VITALS (29 sets, daily range): BP systolic 111–155; BP diastolic 56–77
[2020-10-21] MEDS: INSULIN HUMULIN R 100 UNIT/ML 3ML SQ SCH ×4 (00:38→17:42)
[2020-10-21 03:26] LABS: BASOPHILS % (AUTO) 0.1 % (0.0-5.0); HEMATOCRIT 24.6 % (36-48); LYMPHOCYTES % (AUTO) 5.9 % (21.0-51.0); MEAN CORPUSCULAR HEMOGLOBIN 29.6 pg (27.0-33.0); MEAN CORPUSCULAR HGB CONC 32.9 g/dL (32.0-36.0); MEAN CORPUSCULAR VOLUME 89.8 fL (79-99); MONOCYTES % (AUTO) 3.7 % (3.0-13.0); NEUTROPHILS % (AUTO) 89.3 % (40.0-77.0); PLATELET COUNT (AUTO) 217 K/uL (130-400); RED BLOOD CELL COUNT(AUTO) 2.74 MIL/uL (4.00-5.50); RED CELL DISTRIBUTION WIDTH 15.2 % (11.0-15.5); WHITE BLOOD COUNT (AUTO) 10.1 K/uL (4.8-10.8)
[2020-10-21 03:43] LABS: ALBUMIN 1.6 g/dL (3.5-5.0); BILIRUBIN,TOTAL 0.5 mg/dL (0.2-1.0); CREATININE 4.5 mg/dL (0.5-1.5); MAGNESIUM 3.2 mg/dL (1.80-2.40); POTASSIUM 4.1 mmol/L (3.5-5.1); TOTAL PROTEIN, SERUM 4.9 g/dL (6.0-8.3)
[2020-10-21] MEDS: PROPOFOL 1000 MG/100 ML 100 ML IV PRN ×3 (04:03→18:26)
[2020-10-21] MEDS: SOLU-MEDROL 40MG VIAL IVP SCH ×3 (04:04→20:20)
[2020-10-21 04:51] LABS: ABG BASE EXCESS -0.9 mmol/L (-2.0-3.0); ABG HCO3 22.2 mmol/L (21.0-28.0); ABG OXYGEN SATURATION 99.4 % (95.0-99.0); ABG PCO2 33 mmHg (32-45)
[2020-10-21] MEDS: MEROPENEM 1 GM VIAL IVP SCH ×3 (05:45→22:12)
[2020-10-21] MEDS: HYDRALAZINE 25MG TABLET PO SCH ×3 (05:46→22:12)
[2020-10-21] MEDS: LEVOTHYROXINE 50 MCG TABLET PO SCH (05:54)
[2020-10-21] MEDS: FLUCONAZOLE 200 MG/NS 100 ML 100 ML IV SCH (08:12)
[2020-10-21] MEDS: LINEZOLID 600 MG/ISO-OSM 300 ML IV SCH ×2 (08:12→20:20)
[2020-10-21] MEDS: SODIUM CHLORIDE 1,000 MG TAB PO SCH ×3 (08:13→20:24)
[2020-10-21] MEDS: ASPIRIN 81MG CHEW TAB PO SCH (08:13)
[2020-10-21] MEDS: FAMOTIDINE 20MG VIAL IV SCH (08:13)
[2020-10-21] MEDS: METOPROLOL TARTRATE 50 MG TAB PO SCH ×2 (08:13→20:24)
[2020-10-22] VITALS (24 sets, daily range): BP systolic 129–174; BP diastolic 60–83
[2020-10-22] MEDS: INSULIN HUMULIN R 100 UNIT/ML 3ML SQ SCH ×5 (01:49→23:56)
[2020-10-22] MEDS: SOLU-MEDROL 40MG VIAL IVP SCH ×3 (03:52→19:53)
[2020-10-22 04:54] LABS: CREATININE 4.8 mg/dL (0.5-1.5); POTASSIUM 3.9 mmol/L (3.5-5.1)
[2020-10-22 05:06] LABS: HEMATOCRIT 25.3 % (36-48); MEAN CORPUSCULAR HEMOGLOBIN 30.2 pg (27.0-33.0); MEAN CORPUSCULAR HGB CONC 33.2 g/dL (32.0-36.0); RED BLOOD CELL COUNT(AUTO) 2.78 MIL/uL (4.00-5.50); WHITE BLOOD COUNT (AUTO) 13.2 K/uL (4.8-10.8)
[2020-10-22] MEDS: HYDRALAZINE 25MG TABLET PO SCH ×3 (06:01→21:35)
[2020-10-22] MEDS: LEVOTHYROXINE 50 MCG TABLET PO SCH (06:01)
[2020-10-22] MEDS: MEROPENEM 1 GM VIAL IVP SCH ×3 (06:01→21:34)
[2020-10-22 07:15] LABS: ABG BASE EXCESS -1.8 mmol/L (-2.0-3.0); ABG HCO3 21.6 mmol/L (21.0-28.0); ABG OXYGEN SATURATION 97.7 % (95.0-99.0); ABG PCO2 33 mmHg (32-45)
[2020-10-22 07:17] LABS: ABG BASE EXCESS -1.7 mmol/L (-2.0-3.0); ABG HCO3 21.3 mmol/L (21.0-28.0); ABG OXYGEN SATURATION 98.2 % (95.0-99.0); ABG PCO2 32 mmHg (32-45)
[2020-10-22] MEDS: FLUCONAZOLE 200 MG/NS 100 ML 100 ML IV SCH (08:37)
[2020-10-22] MEDS: SODIUM CHLORIDE 1,000 MG TAB PO SCH ×3 (08:38→19:55)
[2020-10-22] MEDS: METOPROLOL TARTRATE 50 MG TAB PO SCH ×2 (08:38→19:55)
[2020-10-22] MEDS: LINEZOLID 600 MG/ISO-OSM 300 ML IV SCH ×2 (08:38→19:55)
[2020-10-22] MEDS: FAMOTIDINE 20MG VIAL IV SCH (08:38)
[2020-10-22] MEDS: ASPIRIN 81MG CHEW TAB PO SCH (08:38)
[2020-10-22] MEDS ORDERED: LACTATED RINGERS 1000ML 1,000 ML IV ONE (11:28)
[2020-10-22] MEDS: LACTATED RINGERS 1000ML IV SCH ×3 (12:00→19:40)
[2020-10-22] MEDS: PROPOFOL 1000 MG/100 ML 100 ML IV PRN ×2 (13:45→19:55)
[2020-10-23] VITALS (24 sets, daily range): BP systolic 106–163; BP diastolic 50–75
[2020-10-23 03:45] LABS: ABG BASE EXCESS -4.9 mmol/L (-2.0-3.0); ABG HCO3 17.4 mmol/L (21.0-28.0); ABG OXYGEN SATURATION 98.4 % (95.0-99.0); ABG PCO2 26 mmHg (32-45)
[2020-10-23] MEDS: SOLU-MEDROL 40MG VIAL IVP SCH ×3 (03:55→18:13)
[2020-10-23 03:58] LABS: HEMATOCRIT 27.4 % (36-48); MEAN CORPUSCULAR HEMOGLOBIN 29.7 pg (27.0-33.0); MEAN CORPUSCULAR HGB CONC 33.9 g/dL (32.0-36.0); MEAN CORPUSCULAR VOLUME 87.5 fL (79-99); RED BLOOD CELL COUNT(AUTO) 3.13 MIL/uL (4.00-5.50); RED CELL DISTRIBUTION WIDTH 14.6 % (11.0-15.5); WHITE BLOOD COUNT (AUTO) 13.5 K/uL (4.8-10.8)
[2020-10-23 04:11] LABS: CREATININE 4.4 mg/dL (0.5-1.5); MAGNESIUM 2.5 mg/dL (1.80-2.40); POTASSIUM 3.6 mmol/L (3.5-5.1)
[2020-10-23] MEDS: MEROPENEM 1 GM VIAL IVP SCH ×3 (05:09→21:45)
[2020-10-23] MEDS: LEVOTHYROXINE 50 MCG TABLET PO SCH (05:12)
[2020-10-23] MEDS: HYDRALAZINE 25MG TABLET PO SCH ×3 (05:12→21:46)
[2020-10-23] MEDS: INSULIN HUMULIN R 100 UNIT/ML 3ML SQ SCH ×4 (06:26→23:42)
[2020-10-23] MEDS: METOPROLOL TARTRATE 50 MG TAB PO SCH ×2 (08:25→21:00)
[2020-10-23] MEDS: FAMOTIDINE 20MG VIAL IV SCH (08:29)
[2020-10-23] MEDS: FLUCONAZOLE 200 MG/NS 100 ML 100 ML IV SCH (08:29)
[2020-10-23] MEDS: ASPIRIN 81MG CHEW TAB PO SCH (08:30)
[2020-10-23] MEDS: LINEZOLID 600 MG/ISO-OSM 300 ML IV SCH ×2 (08:31→21:43)
[2020-10-23] MEDS: SODIUM CHLORIDE 1,000 MG TAB PO SCH ×3 (08:31→21:45)
[2020-10-23] MEDS ORDERED: LACTATED RINGERS 1000ML IV SCH (09:30)
[2020-10-23] MEDS: LACTATED RINGERS 1000ML 1,000 ML IV SCH ×2 (10:09→16:36)
[2020-10-23] MEDS: LACTOBACILLUS RHAMNOSUS GG 1 EACH CAP.SPRINK PO SCH (16:36)
[2020-10-23] MEDS: LACTATED RINGERS 1000ML IV SCH (23:08)
[2020-10-24] VITALS (24 sets, daily range): BP systolic 139–169; BP diastolic 60–98
[2020-10-24] MEDS: SOLU-MEDROL 40MG VIAL IVP SCH ×2 (03:13→11:39)
[2020-10-24 03:31] LABS: HEMATOCRIT 21.4 % (36-48); MEAN CORPUSCULAR HEMOGLOBIN 29.7 pg (27.0-33.0); MEAN CORPUSCULAR HGB CONC 34.1 g/dL (32.0-36.0); RED BLOOD CELL COUNT(AUTO) 2.46 MIL/uL (4.00-5.50); RED CELL DISTRIBUTION WIDTH 14.4 % (11.0-15.5); WHITE BLOOD COUNT (AUTO) 11.1 K/uL (4.8-10.8)
[2020-10-24 03:47] LABS: CREATININE 3.4 mg/dL (0.5-1.5); MAGNESIUM 2.2 mg/dL (1.80-2.40); POTASSIUM 3.4 mmol/L (3.5-5.1)
[2020-10-24] MEDS: MEROPENEM 1 GM VIAL IVP SCH (05:43)
[2020-10-24] MEDS: HYDRALAZINE 25MG TABLET PO SCH ×3 (05:43→21:31)
[2020-10-24] MEDS: INSULIN HUMULIN R 100 UNIT/ML 3ML SQ SCH ×4 (06:10→23:43)
[2020-10-24] MEDS: LEVOTHYROXINE 50 MCG TABLET PO SCH (06:11)
[2020-10-24 08:07] LABS: ABG BASE EXCESS 0.7 mmol/L (-2.0-3.0); ABG OXYGEN SATURATION 97.7 % (95.0-99.0); ABG PCO2 31 mmHg (32-45)
[2020-10-24] MEDS: METOPROLOL TARTRATE 50 MG TAB PO SCH ×2 (08:07→21:31)
[2020-10-24] MEDS: FAMOTIDINE 20MG VIAL IV SCH (08:26)
[2020-10-24] MEDS: LINEZOLID 600 MG/ISO-OSM 300 ML IV SCH ×2 (08:26→20:34)
[2020-10-24] MEDS: FLUCONAZOLE 200 MG/NS 100 ML 100 ML IV SCH (08:26)
[2020-10-24] MEDS: ASPIRIN 81MG CHEW TAB PO SCH (08:27)
[2020-10-24] MEDS: SODIUM CHLORIDE 1,000 MG TAB PO SCH ×3 (08:27→21:30)
[2020-10-24] MEDS: LACTOBACILLUS RHAMNOSUS GG 1 EACH CAP.SPRINK PO SCH (08:27)
[2020-10-24] MEDS ORDERED: LACTATED RINGERS 1000ML 1,000 ML IV SCH (13:00)
[2020-10-24] MEDS: MEROPENEM 500 MG VIAL IVP SCH (16:06)
[2020-10-25] VITALS (26 sets, daily range): BP systolic 141–176; BP diastolic 61–89
[2020-10-25 03:59] LABS: BASOPHILS % (AUTO) 0.1 % (0.0-5.0); MEAN CORPUSCULAR HEMOGLOBIN 29.9 pg (27.0-33.0); MEAN CORPUSCULAR HGB CONC 33.8 g/dL (32.0-36.0); MEAN CORPUSCULAR VOLUME 88.4 fL (79-99); MONOCYTES % (AUTO) 6.5 % (3.0-13.0); NEUTROPHILS % (AUTO) 84.5 % (40.0-77.0); PLATELET COUNT (AUTO) 226 K/uL (130-400); RED BLOOD CELL COUNT(AUTO) 2.24 MIL/uL (4.00-5.50); RED CELL DISTRIBUTION WIDTH 14.4 % (11.0-15.5); WHITE BLOOD COUNT (AUTO) 12.7 K/uL (4.8-10.8)
[2020-10-25 04:06] LABS: HEMATOCRIT 19.8 % (36-48)
[2020-10-25 04:10] LABS: INR 1.17 (0.85-1.15); PROTHROMBIN TIME 12.3 SEC (9.6-11.6)
[2020-10-25 04:11] LABS: PARTIAL THROMBOPLASTIN TIME 27.9 SEC (26.3-35.5)
[2020-10-25 04:19] LABS: B-TYPE NATRIURETIC PEPTIDE 317 pg/mL (0-100)
[2020-10-25 04:37] LABS: ALBUMIN 1.7 g/dL (3.5-5.0); BILIRUBIN,TOTAL 0.5 mg/dL (0.2-1.0); CREATININE 3.1 mg/dL (0.5-1.5); MAGNESIUM 2.1 mg/dL (1.80-2.40); PHOSPHORUS 5.3 mg/dL (2.5-4.9); TOTAL PROTEIN, SERUM 4.4 g/dL (6.0-8.3)
[2020-10-25 04:48] LABS: POTASSIUM 2.9 mmol/L (3.5-5.1)
[2020-10-25] MEDS: INSULIN HUMULIN R 100 UNIT/ML 3ML SQ SCH ×3 (06:00→17:53)
[2020-10-25] MEDS: LEVOTHYROXINE 50 MCG TABLET PO SCH (06:20)
[2020-10-25] MEDS: HYDRALAZINE 25MG TABLET PO SCH ×3 (06:20→21:21)
[2020-10-25 08:12] LABS: HEMATOCRIT 18.6 % (36-48)
[2020-10-25] MEDS ORDERED: POTASSIUM CHLORIDE 20 MEQ/100 ML BAG IV SCH (08:30)
[2020-10-25] MEDS: SODIUM CHLORIDE 1,000 MG TAB PO SCH ×3 (08:51→21:20)
[2020-10-25] MEDS: ASPIRIN 81MG CHEW TAB PO SCH (08:51)
[2020-10-25] MEDS: LACTOBACILLUS RHAMNOSUS GG 1 EACH CAP.SPRINK PO SCH (08:51)
[2020-10-25] MEDS: METOPROLOL TARTRATE 50 MG TAB PO SCH ×2 (08:51→21:00)
[2020-10-25] MEDS: FLUCONAZOLE 200 MG/NS 100 ML 100 ML IV SCH (08:57)
[2020-10-25] MEDS: SOLU-MEDROL 40MG VIAL IVP SCH (09:02)
[2020-10-25] MEDS: FAMOTIDINE 20MG VIAL IV SCH (09:02)
[2020-10-25] MEDS: LINEZOLID 600 MG/ISO-OSM 300 ML IV SCH ×2 (09:02→21:20)
[2020-10-25] MEDS ORDERED: PROPOFOL 10 MG/ML 20ML VIAL IV ONE (10:30)
[2020-10-25] MEDS ORDERED: LIDOCAINE HCL-MPF 2% 5ML VIAL ONE (10:30)
[2020-10-25] MEDS ORDERED: LACTULOSE 20 GM/30 ML UDCUP PO PRN (11:45)
[2020-10-25 13:59] LABS: MEAN CORPUSCULAR HEMOGLOBIN 29.4 pg (27.0-33.0); MEAN CORPUSCULAR VOLUME 86.5 fL (79-99); RED BLOOD CELL COUNT(AUTO) 2.89 MIL/uL (4.00-5.50); RED CELL DISTRIBUTION WIDTH 14.1 % (11.0-15.5); WHITE BLOOD COUNT (AUTO) 12.8 K/uL (4.8-10.8)
[2020-10-25] MEDS: LACTULOSE 20 GM/30 ML UDCUP PO PRN ×2 (14:20→15:45)
[2020-10-25] MEDS: CLONIDINE HCL 0.1 MG TABLET PO PRN (14:20)
[2020-10-25] MEDS: MEROPENEM 500 MG VIAL IVP SCH (15:45)
[2020-10-25] MEDS ORDERED: PEG 3350/NA SULF,BICARB,CL/KCL 4000 ML SOLN PO SCH (16:00)
[2020-10-25] MEDS: POTASSIUM CHLORIDE 20MEQ/100ML 100 ML IV PRN (17:06)
[2020-10-26] VITALS (30 sets, daily range): BP systolic 134–192; BP diastolic 62–97
[2020-10-26 05:25] LABS: BASOPHILS % (AUTO) 0.2 % (0.0-5.0); EOSINOPHILS % (AUTO) 0.3 % (0.0-8.0); HEMATOCRIT 21.7 % (36-48); LYMPHOCYTES % (AUTO) 10.9 % (21.0-51.0); MEAN CORPUSCULAR HEMOGLOBIN 29.6 pg (27.0-33.0); MEAN CORPUSCULAR HGB CONC 34.1 g/dL (32.0-36.0); MEAN CORPUSCULAR VOLUME 86.8 fL (79-99); MONOCYTES % (AUTO) 6.7 % (3.0-13.0); NEUTROPHILS % (AUTO) 80.8 % (40.0-77.0); PLATELET COUNT (AUTO) 168 K/uL (130-400); RED CELL DISTRIBUTION WIDTH 14.8 % (11.0-15.5); WHITE BLOOD COUNT (AUTO) 11.3 K/uL (4.8-10.8)
[2020-10-26] MEDS: HYDRALAZINE 25MG TABLET PO SCH ×3 (05:52→22:56)
[2020-10-26] MEDS: INSULIN HUMULIN R 100 UNIT/ML 3ML SQ SCH ×4 (05:53→18:11)
[2020-10-26 06:02] LABS: ALBUMIN 1.7 g/dL (3.5-5.0); BILIRUBIN,TOTAL 0.7 mg/dL (0.2-1.0); CREATININE 2.3 mg/dL (0.5-1.5); PHOSPHORUS 4.1 mg/dL (2.5-4.9); POTASSIUM 3.4 mmol/L (3.5-5.1); TOTAL PROTEIN, SERUM 4.4 g/dL (6.0-8.3)
[2020-10-26] MEDS: SODIUM CHLORIDE 1,000 MG TAB PO SCH ×3 (09:28→22:23)
[2020-10-26] MEDS: FLUCONAZOLE 200 MG/NS 100 ML 100 ML IV SCH (09:28)
[2020-10-26] MEDS: FAMOTIDINE 20MG VIAL IV SCH (09:28)
[2020-10-26] MEDS: ASPIRIN 81MG CHEW TAB PO SCH (09:28)
[2020-10-26] MEDS: LACTOBACILLUS RHAMNOSUS GG 1 EACH CAP.SPRINK PO SCH (09:28)
[2020-10-26] MEDS: LINEZOLID 600 MG/ISO-OSM 300 ML IV SCH ×3 (09:28→20:24)
[2020-10-26] MEDS: SOLU-MEDROL 40MG VIAL IVP SCH (09:29)
[2020-10-26] MEDS ORDERED: METOPROLOL TARTRATE 25 MG TAB ONE (09:30)
[2020-10-26] MEDS: LEVOTHYROXINE 50 MCG TABLET PO SCH (09:31)
[2020-10-26] MEDS: METOPROLOL TARTRATE 50 MG TAB PO SCH (09:33)
[2020-10-26] MEDS ORDERED: MIDAZOLAM HCL 1 MG/ML 2ML VIAL ONE (14:01)
[2020-10-26] MEDS: MEROPENEM 500 MG VIAL IVP SCH (16:48)
[2020-10-26] MEDS: PROPOFOL 1000 MG/100 ML 100 ML IV PRN (21:37)
[2020-10-26] MEDS: POTASSIUM CHLORIDE 20MEQ/100ML 100 ML IV PRN (23:40)
[2020-10-27] VITALS (26 sets, daily range): BP systolic 128–173; BP diastolic 60–76
[2020-10-27] MEDS: INSULIN HUMULIN R 100 UNIT/ML 3ML SQ SCH ×4 (00:05→18:13)
[2020-10-27] MEDS: METOPROLOL TARTRATE 50 MG TAB PO SCH ×3 (00:05→21:46)
[2020-10-27 05:25] LABS: BASOPHILS % (AUTO) 0.1 % (0.0-5.0); EOSINOPHILS % (AUTO) 0.9 % (0.0-8.0); HEMATOCRIT 21.7 % (36-48); LYMPHOCYTES % (AUTO) 8.6 % (21.0-51.0); MEAN CORPUSCULAR HEMOGLOBIN 29.7 pg (27.0-33.0); MEAN CORPUSCULAR HGB CONC 34.1 g/dL (32.0-36.0); MEAN CORPUSCULAR VOLUME 87.1 fL (79-99); MONOCYTES % (AUTO) 4.9 % (3.0-13.0); NEUTROPHILS % (AUTO) 84.6 % (40.0-77.0); PLATELET COUNT (AUTO) 157 K/uL (130-400); RED BLOOD CELL COUNT(AUTO) 2.49 MIL/uL (4.00-5.50); RED CELL DISTRIBUTION WIDTH 14.6 % (11.0-15.5); WHITE BLOOD COUNT (AUTO) 12.7 K/uL (4.8-10.8)
[2020-10-27 06:00] LABS: ALBUMIN 1.6 g/dL (3.5-5.0); BILIRUBIN,DIRECT 0.2 mg/dL (0.0-0.3); BILIRUBIN,TOTAL 0.6 mg/dL (0.2-1.0); CREATININE 1.9 mg/dL (0.5-1.5); POTASSIUM 3.5 mmol/L (3.5-5.1); TOTAL PROTEIN, SERUM 4.1 g/dL (6.0-8.3)
[2020-10-27] MEDS: HYDRALAZINE 25MG TABLET PO SCH ×3 (06:22→23:25)
[2020-10-27] MEDS: FLUCONAZOLE 200 MG/NS 100 ML 100 ML IV SCH (09:21)
[2020-10-27] MEDS: LEVOTHYROXINE 50 MCG TABLET PO SCH (09:21)
[2020-10-27] MEDS: SOLU-MEDROL 40MG VIAL IVP SCH (09:22)
[2020-10-27] MEDS: SODIUM CHLORIDE 1,000 MG TAB PO SCH ×3 (09:22→21:48)
[2020-10-27] MEDS: ASPIRIN 81MG CHEW TAB PO SCH (09:22)
[2020-10-27] MEDS: LACTOBACILLUS RHAMNOSUS GG 1 EACH CAP.SPRINK PO SCH (09:22)
[2020-10-27] MEDS: FAMOTIDINE 20MG VIAL IV SCH (09:22)
[2020-10-27] MEDS ORDERED: PHARMACY COMMUNICATION MISC SCH (11:30)
[2020-10-27] MEDS: PROPOFOL 1000 MG/100 ML 100 ML IV PRN ×2 (13:23→21:47)
[2020-10-27] MEDS: MEROPENEM 500 MG VIAL IVP SCH (16:20)
[2020-10-27] MEDS: ZINC OXIDE OINT 56.7 GM TP PRN (17:01)
[2020-10-27] MEDS: LINEZOLID 600 MG/ISO-OSM 300 ML IV SCH (21:46)
[2020-10-28] VITALS (25 sets, daily range): BP systolic 129–171; BP diastolic 54–74
[2020-10-28] MEDS: INSULIN HUMULIN R 100 UNIT/ML 3ML SQ SCH ×4 (00:25→17:57)
[2020-10-28 05:25] LABS: ALBUMIN 1.7 g/dL (3.5-5.0); BILIRUBIN,TOTAL 0.5 mg/dL (0.2-1.0); CREATININE 1.8 mg/dL (0.5-1.5); MAGNESIUM 1.5 mg/dL (1.80-2.40); POTASSIUM 3.5 mmol/L (3.5-5.1); TOTAL PROTEIN, SERUM 4.2 g/dL (6.0-8.3)
[2020-10-28] MEDS: HYDRALAZINE 25MG TABLET PO SCH ×3 (05:44→22:17)
[2020-10-28 06:01] LABS: RED BLOOD CELL COUNT(AUTO) 2.37 MIL/uL (4.00-5.50); WHITE BLOOD COUNT (AUTO) 10.3 K/uL (4.8-10.8)
[2020-10-28 06:04] LABS: HEMATOCRIT 21.6 % (36-48)
[2020-10-28 06:05] LABS: BASOPHILS % (AUTO) 0.1 % (0.0-5.0); EOSINOPHILS % (AUTO) 1.7 % (0.0-8.0); LYMPHOCYTES % (AUTO) 11.2 % (21.0-51.0); MEAN CORPUSCULAR HGB CONC 32.9 g/dL (32.0-36.0); MEAN CORPUSCULAR VOLUME 91.1 fL (79-99); MONOCYTES % (AUTO) 4.6 % (3.0-13.0); NEUTROPHILS % (AUTO) 81.5 % (40.0-77.0); PLATELET COUNT (AUTO) 136 K/uL (130-400)
[2020-10-28] MEDS: MAGNESIUM 2GM PREMIX 50ML 50 ML IV PRN (06:29)
[2020-10-28] MEDS: FAMOTIDINE 20MG VIAL IV SCH (07:56)
[2020-10-28] MEDS: LINEZOLID 600 MG/ISO-OSM 300 ML IV SCH ×2 (07:56→20:50)
[2020-10-28] MEDS: FLUCONAZOLE 200 MG/NS 100 ML 100 ML IV SCH (07:56)
[2020-10-28] MEDS: LEVOTHYROXINE 50 MCG TABLET PO SCH (07:57)
[2020-10-28] MEDS: LACTOBACILLUS RHAMNOSUS GG 1 EACH CAP.SPRINK PO SCH (07:57)
[2020-10-28] MEDS: ASPIRIN 81MG CHEW TAB PO SCH (07:57)
[2020-10-28] MEDS: METOPROLOL TARTRATE 50 MG TAB PO SCH ×2 (07:57→20:50)
[2020-10-28] MEDS: SODIUM CHLORIDE 1,000 MG TAB PO SCH ×3 (07:58→20:50)
[2020-10-28] MEDS: MEROPENEM 500 MG VIAL IVP SCH (16:37)
[2020-10-29] VITALS (35 sets, daily range): BP systolic 135–182; BP diastolic 56–87
[2020-10-29] MEDS: INSULIN HUMULIN R 100 UNIT/ML 3ML SQ SCH ×4 (00:11→17:38)
[2020-10-29 04:16] LABS: EOSINOPHILS % (AUTO) 3.6 % (0.0-8.0); LYMPHOCYTES % (AUTO) 13.2 % (21.0-51.0); MEAN CORPUSCULAR HGB CONC 32.2 g/dL (32.0-36.0); MONOCYTES % (AUTO) 4.4 % (3.0-13.0); PLATELET COUNT (AUTO) 102 K/uL (130-400); RED BLOOD CELL COUNT(AUTO) 2.21 MIL/uL (4.00-5.50); RED CELL DISTRIBUTION WIDTH 14.6 % (11.0-15.5); WHITE BLOOD COUNT (AUTO) 7.3 K/uL (4.8-10.8)
[2020-10-29 04:22] LABS: HEMATOCRIT 19.9 % (36-48)
[2020-10-29 04:31] LABS: CREATININE 1.6 mg/dL (0.5-1.5); POTASSIUM 3.4 mmol/L (3.5-5.1)
[2020-10-29] MEDS: POTASSIUM CHLORIDE 20MEQ/100ML 100 ML IV PRN ×2 (04:47→18:32)
[2020-10-29] MEDS: HYDRALAZINE 25MG TABLET PO SCH ×3 (06:02→21:03)
[2020-10-29] MEDS: LEVOTHYROXINE 50 MCG TABLET PO SCH (06:02)
[2020-10-29] MEDS ORDERED: 0.9% NACL 250ML 250 ML IV ONE ×2 (08:10→22:24)
[2020-10-29] MEDS: LACTOBACILLUS RHAMNOSUS GG 1 EACH CAP.SPRINK PO SCH (09:21)
[2020-10-29] MEDS: SODIUM CHLORIDE 1,000 MG TAB PO SCH ×3 (09:22→21:02)
[2020-10-29] MEDS: FLUCONAZOLE 200 MG/NS 100 ML 100 ML IV SCH (09:22)
[2020-10-29] MEDS: LINEZOLID 600 MG/ISO-OSM 300 ML IV SCH ×2 (09:22→21:02)
[2020-10-29] MEDS: ASPIRIN 81MG CHEW TAB PO SCH (09:22)
[2020-10-29] MEDS: FAMOTIDINE 20MG VIAL IV SCH (09:22)
[2020-10-29] MEDS: METOPROLOL TARTRATE 50 MG TAB PO SCH ×2 (09:23→21:02)
[2020-10-29] MEDS: FUROSEMIDE 40MG VIAL IV SCH (11:17)
[2020-10-29] MEDS: MEROPENEM 500 MG VIAL IVP SCH (16:35)
[2020-10-29] MEDS ORDERED: LABETALOL 20MG SYG IV PRN (17:45)
[2020-10-29 18:10] LABS: HEMATOCRIT 32.2 % (36-48)
[2020-10-29] MEDS: ACETAMINOPHEN 325 MG TAB PO PRN (21:04)
[2020-10-30] VITALS (19 sets, daily range): BP systolic 131–170; BP diastolic 51–89
[2020-10-30 03:39] LABS: BASOPHILS % (AUTO) 0.1 % (0.0-5.0); EOSINOPHILS % (AUTO) 3.6 % (0.0-8.0); HEMATOCRIT 28.6 % (36-48); LYMPHOCYTES % (AUTO) 15.7 % (21.0-51.0); MEAN CORPUSCULAR HEMOGLOBIN 30.3 pg (27.0-33.0); MEAN CORPUSCULAR HGB CONC 35.3 g/dL (32.0-36.0); MEAN CORPUSCULAR VOLUME 85.9 fL (79-99); MONOCYTES % (AUTO) 5.1 % (3.0-13.0); NEUTROPHILS % (AUTO) 74.5 % (40.0-77.0); PLATELET COUNT (AUTO) 106 K/uL (130-400); RED BLOOD CELL COUNT(AUTO) 3.33 MIL/uL (4.00-5.50); RED CELL DISTRIBUTION WIDTH 14.3 % (11.0-15.5); WHITE BLOOD COUNT (AUTO) 8.9 K/uL (4.8-10.8)
[2020-10-30 03:52] LABS: ALBUMIN 1.8 g/dL (3.5-5.0); BILIRUBIN,TOTAL 1.4 mg/dL (0.2-1.0); CREATININE 1.5 mg/dL (0.5-1.5); PHOSPHORUS 1.6 mg/dL (2.5-4.9); POTASSIUM 3.1 mmol/L (3.5-5.1); TOTAL PROTEIN, SERUM 4.5 g/dL (6.0-8.3)
[2020-10-30] MEDS: DEXTROSE 50%-WATER 50 ML DISP.SYRIN IV PRN (04:00)
[2020-10-30] MEDS: HYDRALAZINE 25MG TABLET PO SCH ×3 (05:03→21:55)
[2020-10-30] MEDS: MAGNESIUM 2GM PREMIX 50ML 50 ML IV PRN ×2 (05:03→20:10)
[2020-10-30] MEDS: POTASSIUM CHLORIDE 20MEQ/100ML 100 ML IV PRN (05:04)
[2020-10-30] MEDS: LEVOTHYROXINE 50 MCG TABLET PO SCH (05:12)
[2020-10-30] MEDS: INSULIN HUMULIN R 100 UNIT/ML 3ML SQ SCH ×5 (05:58→23:12)
[2020-10-30] MEDS: FAMOTIDINE 20MG VIAL IV SCH (09:19)
[2020-10-30] MEDS: LINEZOLID 600 MG/ISO-OSM 300 ML IV SCH ×2 (09:19→20:11)
[2020-10-30] MEDS: FLUCONAZOLE 200 MG/NS 100 ML 100 ML IV SCH (09:19)
[2020-10-30] MEDS: ASPIRIN 81MG CHEW TAB PO SCH (09:19)
[2020-10-30] MEDS: METOPROLOL TARTRATE 50 MG TAB PO SCH ×2 (09:20→20:10)
[2020-10-30] MEDS: LACTOBACILLUS RHAMNOSUS GG 1 EACH CAP.SPRINK PO SCH (09:20)
[2020-10-30] MEDS: SODIUM CHLORIDE 1,000 MG TAB PO SCH ×3 (09:20→19:59)
[2020-10-30] MEDS: FUROSEMIDE 40MG VIAL IV SCH (09:25)
[2020-10-30] MEDS: METOLAZONE 2.5 MG TABLET PO SCH (09:26)
[2020-10-30 14:12] LABS: MAGNESIUM 1.7 mg/dL (1.80-2.40); POTASSIUM 3.2 mmol/L (3.5-5.1)
[2020-10-30] MEDS: MEROPENEM 500 MG VIAL IVP SCH (15:06)
[2020-10-30] MEDS: ACETAMINOPHEN 325 MG TAB PO PRN (21:55)
[2020-10-31] VITALS (26 sets, daily range): BP systolic 109–155; BP diastolic 42–101
[2020-10-31 05:12] LABS: CREATININE 1.5 mg/dL (0.5-1.5); POTASSIUM 3.1 mmol/L (3.5-5.1)
[2020-10-31] MEDS: LEVOTHYROXINE 50 MCG TABLET PO SCH (06:08)
[2020-10-31] MEDS: HYDRALAZINE 25MG TABLET PO SCH ×3 (06:08→21:15)
[2020-10-31] MEDS: INSULIN HUMULIN R 100 UNIT/ML 3ML SQ SCH ×3 (06:09→18:00)
[2020-10-31] MEDS: POTASSIUM CHLORIDE 20MEQ/100ML 100 ML IV PRN ×2 (06:11→21:15)
[2020-10-31 08:52] LABS: BASOPHILS % (AUTO) 0.1 % (0.0-5.0); EOSINOPHILS % (AUTO) 3.3 % (0.0-8.0); HEMATOCRIT 27.2 % (36-48); LYMPHOCYTES % (AUTO) 12.1 % (21.0-51.0); MEAN CORPUSCULAR HEMOGLOBIN 29.8 pg (27.0-33.0); MEAN CORPUSCULAR HGB CONC 33.5 g/dL (32.0-36.0); MEAN CORPUSCULAR VOLUME 89.2 fL (79-99); MONOCYTES % (AUTO) 5.1 % (3.0-13.0); NEUTROPHILS % (AUTO) 78.8 % (40.0-77.0); PLATELET COUNT (AUTO) 86 K/uL (130-400); RED BLOOD CELL COUNT(AUTO) 3.05 MIL/uL (4.00-5.50); RED CELL DISTRIBUTION WIDTH 14.3 % (11.0-15.5); WHITE BLOOD COUNT (AUTO) 7.8 K/uL (4.8-10.8)
[2020-10-31] MEDS: METOLAZONE 2.5 MG TABLET PO SCH (09:00)
[2020-10-31] MEDS: SODIUM CHLORIDE 1,000 MG TAB PO SCH (09:00)
[2020-10-31 09:25] LABS: ALBUMIN 1.7 g/dL (3.5-5.0); BILIRUBIN,DIRECT 0.3 mg/dL (0.0-0.3); TOTAL PROTEIN, SERUM 4.1 g/dL (6.0-8.3)
[2020-10-31] MEDS: LINEZOLID 600 MG/ISO-OSM 300 ML IV SCH ×2 (09:50→19:59)
[2020-10-31] MEDS: METOPROLOL TARTRATE 50 MG TAB PO SCH ×2 (09:51→19:59)
[2020-10-31] MEDS: FAMOTIDINE 20MG VIAL IV SCH (09:51)
[2020-10-31] MEDS: FLUCONAZOLE 200 MG/NS 100 ML 100 ML IV SCH (09:51)
[2020-10-31] MEDS: LACTOBACILLUS RHAMNOSUS GG 1 EACH CAP.SPRINK PO SCH (09:51)
[2020-10-31] MEDS: ASPIRIN 81MG CHEW TAB PO SCH (09:51)
[2020-10-31] MEDS: FUROSEMIDE 40MG VIAL IV SCH (09:59)
[2020-10-31] MEDS: MEROPENEM 500 MG VIAL IVP SCH (15:05)
[2020-10-31] MEDS ORDERED: PHARMACY COMMUNICATION MISC SCH (20:00)
[2020-10-31] MEDS: ZINC OXIDE OINT 56.7 GM TP PRN (20:55)
[2020-11-01] VITALS (20 sets, daily range): BP systolic 122–158; BP diastolic 53–117
[2020-11-01] MEDS: INSULIN HUMULIN R 100 UNIT/ML 3ML SQ SCH ×4 (00:22→18:00)
[2020-11-01] MEDS: POTASSIUM CHLORIDE 20MEQ/100ML 100 ML IV PRN (00:27)
[2020-11-01 05:13] LABS: HEMATOCRIT 29.5 % (36-48); MEAN CORPUSCULAR HEMOGLOBIN 29.8 pg (27.0-33.0); MEAN CORPUSCULAR HGB CONC 32.9 g/dL (32.0-36.0); MEAN CORPUSCULAR VOLUME 90.5 fL (79-99); RED BLOOD CELL COUNT(AUTO) 3.26 MIL/uL (4.00-5.50); RED CELL DISTRIBUTION WIDTH 14.2 % (11.0-15.5); WHITE BLOOD COUNT (AUTO) 6.5 K/uL (4.8-10.8)
[2020-11-01 05:18] LABS: CREATININE 1.5 mg/dL (0.5-1.5); POTASSIUM 4.2 mmol/L (3.5-5.1)
[2020-11-01] MEDS: HYDRALAZINE 25MG TABLET PO SCH ×3 (06:24→22:00)
[2020-11-01] MEDS: LEVOTHYROXINE 50 MCG TABLET PO SCH (06:27)
[2020-11-01] MEDS: FLUCONAZOLE 200 MG/NS 100 ML 100 ML IV SCH (07:28)
[2020-11-01] MEDS: FAMOTIDINE 20MG VIAL IV SCH (07:29)
[2020-11-01] MEDS: LINEZOLID 600 MG/ISO-OSM 300 ML IV SCH ×2 (07:29→20:18)
[2020-11-01] MEDS: METOPROLOL TARTRATE 50 MG TAB PO SCH ×2 (07:30→20:18)
[2020-11-01] MEDS: ASPIRIN 81MG CHEW TAB PO SCH (07:30)
[2020-11-01] MEDS: LACTOBACILLUS RHAMNOSUS GG 1 EACH CAP.SPRINK PO SCH (07:30)
[2020-11-01] MEDS ORDERED: FUROSEMIDE 20MG VIAL IV SCH (09:00)
[2020-11-01] MEDS: MEROPENEM 500 MG VIAL IVP SCH (15:23)
[2020-11-02 04:00] VITALS: BP 150/76
[2020-11-02] MEDS: HYDRALAZINE 25MG TABLET PO SCH ×3 (06:00→21:18)
[2020-11-02 06:14] LABS: HEMATOCRIT 27.5 % (36-48); MEAN CORPUSCULAR HEMOGLOBIN 29.7 pg (27.0-33.0); MEAN CORPUSCULAR HGB CONC 32.7 g/dL (32.0-36.0); MEAN CORPUSCULAR VOLUME 90.8 fL (79-99); RED BLOOD CELL COUNT(AUTO) 3.03 MIL/uL (4.00-5.50); RED CELL DISTRIBUTION WIDTH 13.8 % (11.0-15.5); WHITE BLOOD COUNT (AUTO) 5.5 K/uL (4.8-10.8)
[2020-11-02 06:27] LABS: CREATININE 1.3 mg/dL (0.5-1.5); POTASSIUM 3.6 mmol/L (3.5-5.1)
[2020-11-02 08:55] VITALS: BP 152/70
[2020-11-02] MEDS: LEVOTHYROXINE 50 MCG TABLET PO SCH (09:29)
[2020-11-02] MEDS: FAMOTIDINE 20MG VIAL IV SCH (09:29)
[2020-11-02] MEDS: ASPIRIN 81MG CHEW TAB PO SCH (09:30)
[2020-11-02] MEDS: METOPROLOL TARTRATE 50 MG TAB PO SCH ×2 (09:31→21:17)
[2020-11-02] MEDS: LACTOBACILLUS RHAMNOSUS GG 1 EACH CAP.SPRINK PO SCH (09:32)
[2020-11-02 11:55] VITALS: BP 164/81
[2020-11-02] MEDS: LINEZOLID 600 MG/ISO-OSM 300 ML IV SCH ×2 (13:06→21:17)
[2020-11-02] MEDS: FLUCONAZOLE 200 MG/NS 100 ML 100 ML IV SCH (13:07)
[2020-11-02] MEDS: MEROPENEM 500 MG VIAL IVP SCH (15:42)
[2020-11-02] MEDS: BALSAM PERU/CASTOR OIL 60 GM TUBE TP SCH ×2 (15:44→21:18)
[2020-11-02 17:28] VITALS: BP 152/73
[2020-11-02 19:53] VITALS: BP 137/52
[2020-11-02 23:56] VITALS: BP 160/61
[2020-11-03 04:00] VITALS: BP 159/73
[2020-11-03] MEDS: HYDRALAZINE 25MG TABLET PO SCH ×3 (05:36→22:21)
[2020-11-03 07:30] VITALS: BP 178/77
[2020-11-03] MEDS: LACTOBACILLUS RHAMNOSUS GG 1 EACH CAP.SPRINK PO SCH (10:47)
[2020-11-03] MEDS: FAMOTIDINE 20MG VIAL IV SCH (10:47)
[2020-11-03] MEDS: ASPIRIN 81MG CHEW TAB PO SCH (10:47)
[2020-11-03] MEDS: LEVOTHYROXINE 50 MCG TABLET PO SCH (10:48)
[2020-11-03] MEDS: FLUCONAZOLE 200 MG/NS 100 ML 100 ML IV SCH (10:48)
[2020-11-03] MEDS: LINEZOLID 600 MG/ISO-OSM 300 ML IV SCH ×2 (10:48→22:22)
[2020-11-03] MEDS: METOPROLOL TARTRATE 50 MG TAB PO SCH ×2 (10:48→22:21)
[2020-11-03 11:00] VITALS: BP 150/57
[2020-11-03] MEDS: BALSAM PERU/CASTOR OIL 60 GM TUBE TP SCH ×3 (11:14→22:22)
[2020-11-03 11:51] LABS: HEMATOCRIT 27.4 % (36-48); MEAN CORPUSCULAR HEMOGLOBIN 29.9 pg (27.0-33.0); MEAN CORPUSCULAR HGB CONC 32.8 g/dL (32.0-36.0); RED BLOOD CELL COUNT(AUTO) 3.01 MIL/uL (4.00-5.50); RED CELL DISTRIBUTION WIDTH 13.2 % (11.0-15.5); WHITE BLOOD COUNT (AUTO) 5.1 K/uL (4.8-10.8)
[2020-11-03] MEDS ORDERED: DRONABINOL 2.5 MG CAP PO SCH (12:00)
[2020-11-03 12:05] LABS: ALBUMIN 1.9 g/dL (3.5-5.0); CREATININE 1.1 mg/dL (0.5-1.5); POTASSIUM 3.4 mmol/L (3.5-5.1); TOTAL PROTEIN, SERUM 4.7 g/dL (6.0-8.3)
[2020-11-03 16:00] VITALS: BP 142/64
[2020-11-03] MEDS: MEROPENEM 500 MG VIAL IVP SCH (17:20)
[2020-11-03 20:00] VITALS: BP 160/72
[2020-11-03] MEDS: DRONABINOL 2.5 MG CAP PO SCH (21:00)
[2020-11-04] VITALS: BP 149/65
[2020-11-04 04:00] VITALS: BP 150/67
[2020-11-04] MEDS: HYDRALAZINE 25MG TABLET PO SCH ×3 (06:20→22:17)
[2020-11-04 08:00] VITALS: BP 125/58
[2020-11-04 08:58] LABS: HEMATOCRIT 28.8 % (36-48); MEAN CORPUSCULAR HEMOGLOBIN 29.4 pg (27.0-33.0); MEAN CORPUSCULAR HGB CONC 32.6 g/dL (32.0-36.0); RED BLOOD CELL COUNT(AUTO) 3.2 MIL/uL (4.00-5.50); RED CELL DISTRIBUTION WIDTH 13.1 % (11.0-15.5)
[2020-11-04 09:04] LABS: CREATININE 1.1 mg/dL (0.5-1.5); POTASSIUM 3.3 mmol/L (3.5-5.1)
[2020-11-04] MEDS: FLUCONAZOLE 200 MG/NS 100 ML 100 ML IV SCH (10:59)
[2020-11-04] MEDS: LACTOBACILLUS RHAMNOSUS GG 1 EACH CAP.SPRINK PO SCH (10:59)
[2020-11-04] MEDS: LINEZOLID 600 MG/ISO-OSM 300 ML IV SCH ×2 (10:59→22:18)
[2020-11-04 11:00] VITALS: BP 136/63
[2020-11-04] MEDS: METOPROLOL TARTRATE 50 MG TAB PO SCH ×2 (11:00→22:18)
[2020-11-04] MEDS: ASPIRIN 81MG CHEW TAB PO SCH (11:00)
[2020-11-04] MEDS: LEVOTHYROXINE 50 MCG TABLET PO SCH (11:00)
[2020-11-04] MEDS: FAMOTIDINE 20MG VIAL IV SCH (11:00)
[2020-11-04] MEDS: DRONABINOL 2.5 MG CAP PO SCH ×2 (11:00→22:17)
[2020-11-04] MEDS: BALSAM PERU/CASTOR OIL 60 GM TUBE TP SCH ×3 (11:01→22:18)
[2020-11-04] MEDS: MEROPENEM 500 MG VIAL IVP SCH (15:20)
[2020-11-04 16:00] VITALS: BP 138/59
[2020-11-04 20:00] VITALS: BP 140/56
[2020-11-05] VITALS: BP 95/46
[2020-11-05 04:04] VITALS: BP 145/70
[2020-11-05] MEDS: HYDRALAZINE 25MG TABLET PO SCH ×3 (06:21→21:16)
[2020-11-05 07:09] LABS: HEMATOCRIT 24.9 % (36-48); MEAN CORPUSCULAR HEMOGLOBIN 29.3 pg (27.0-33.0); MEAN CORPUSCULAR HGB CONC 32.5 g/dL (32.0-36.0); MEAN CORPUSCULAR VOLUME 90.2 fL (79-99); RED BLOOD CELL COUNT(AUTO) 2.76 MIL/uL (4.00-5.50); RED CELL DISTRIBUTION WIDTH 13.2 % (11.0-15.5)
[2020-11-05 07:16] LABS: CREATININE 1.3 mg/dL (0.5-1.5); POTASSIUM 4.2 mmol/L (3.5-5.1)
[2020-11-05 08:26] VITALS: BP 168/74
[2020-11-05 11:30] VITALS: BP 149/66
[2020-11-05] MEDS: ASPIRIN 81MG CHEW TAB PO SCH (11:35)
[2020-11-05] MEDS: LACTOBACILLUS RHAMNOSUS GG 1 EACH CAP.SPRINK PO SCH (11:35)
[2020-11-05] MEDS: LINEZOLID 600 MG/ISO-OSM 300 ML IV SCH ×2 (11:36→21:00)
[2020-11-05] MEDS: DRONABINOL 2.5 MG CAP PO SCH ×2 (11:36→21:15)
[2020-11-05] MEDS: METOPROLOL TARTRATE 50 MG TAB PO SCH ×2 (11:36→21:00)
[2020-11-05] MEDS: FAMOTIDINE 20MG VIAL IV SCH (11:37)
[2020-11-05] MEDS: FLUCONAZOLE 200 MG/NS 100 ML 100 ML IV SCH (11:37)
[2020-11-05] MEDS: BALSAM PERU/CASTOR OIL 60 GM TUBE TP SCH ×3 (11:38→21:16)
[2020-11-05] MEDS: LEVOTHYROXINE 50 MCG TABLET PO SCH (14:45)
[2020-11-05] MEDS: MEROPENEM 500 MG VIAL IVP SCH (15:14)
[2020-11-05 20:00] VITALS: BP 155/67
[2020-11-06] VITALS (23 sets, daily range): BP systolic 104–168; BP diastolic 45–76
[2020-11-06] MEDS: LEVOTHYROXINE 50 MCG TABLET PO SCH (04:39)
[2020-11-06] MEDS: HYDRALAZINE 25MG TABLET PO SCH ×3 (04:39→21:07)
[2020-11-06 06:23] LABS: HEMATOCRIT 24.7 % (36-48); MEAN CORPUSCULAR HEMOGLOBIN 29.5 pg (27.0-33.0); MEAN CORPUSCULAR HGB CONC 33.2 g/dL (32.0-36.0); MEAN CORPUSCULAR VOLUME 88.8 fL (79-99); RED BLOOD CELL COUNT(AUTO) 2.78 MIL/uL (4.00-5.50); WHITE BLOOD COUNT (AUTO) 4.7 K/uL (4.8-10.8)
[2020-11-06 07:01] LABS: INR 1.16 (0.85-1.15); PROTHROMBIN TIME 12.2 SEC (9.6-11.6)
[2020-11-06 07:02] LABS: PARTIAL THROMBOPLASTIN TIME 30.4 SEC (26.3-35.5)
[2020-11-06 07:03] LABS: CREATININE 1.2 mg/dL (0.5-1.5); POTASSIUM 3.1 mmol/L (3.5-5.1)
[2020-11-06] MEDS: FLUCONAZOLE 200 MG/NS 100 ML 100 ML IV SCH (09:00)
[2020-11-06] MEDS: LACTOBACILLUS RHAMNOSUS GG 1 EACH CAP.SPRINK PO SCH (09:00)
[2020-11-06] MEDS: BALSAM PERU/CASTOR OIL 60 GM TUBE TP SCH ×3 (09:00→21:06)
[2020-11-06] MEDS: LINEZOLID 600 MG/ISO-OSM 300 ML IV SCH ×2 (09:00→20:31)
[2020-11-06] MEDS: ASPIRIN 81MG CHEW TAB PO SCH (09:00)
[2020-11-06] MEDS: METOPROLOL TARTRATE 50 MG TAB PO SCH ×2 (09:00→21:06)
[2020-11-06] MEDS: FAMOTIDINE 20MG VIAL IV SCH (09:00)
[2020-11-06] MEDS: DRONABINOL 2.5 MG CAP PO SCH ×2 (09:00→21:07)
[2020-11-06] MEDS ORDERED: BUPIVACAINE/PF 0.5% 30ML VIAL ONE (16:13)
[2020-11-06] MEDS ORDERED: LIDOCAINE HCL 1% 20 ML VIAL ONE (16:13)
[2020-11-06] MEDS: INSULIN HUMULIN R 100 UNIT/ML 3ML SQ SCH ×2 (16:30→21:00)
[2020-11-06] MEDS: MEROPENEM 500 MG VIAL IVP SCH (16:32)
[2020-11-06] MEDS ORDERED: PROPOFOL 1000 MG/100 ML 100 ML IV ONE (19:01)
[2020-11-06] MEDS ORDERED: 0.9%NACL 1000ML 1,000 ML IV ONE (19:03)
[2020-11-06] MEDS ORDERED: MORPHINE 2 MG SYG IVP PRN (21:45)
[2020-11-06] MEDS ORDERED: HYDROMORPHONE 1 MG INJ IVP PRN (21:45)
[2020-11-07] VITALS (9 sets, daily range): BP systolic 116–162; BP diastolic 39–69
[2020-11-07] MEDS: LEVOTHYROXINE 50 MCG TABLET PO SCH (04:43)
[2020-11-07] MEDS: HYDRALAZINE 25MG TABLET PO SCH ×3 (04:43→21:13)
[2020-11-07 05:15] LABS: HEMATOCRIT 23.4 % (36-48); MEAN CORPUSCULAR HEMOGLOBIN 30.1 pg (27.0-33.0); MEAN CORPUSCULAR HGB CONC 34.2 g/dL (32.0-36.0); RED BLOOD CELL COUNT(AUTO) 2.66 MIL/uL (4.00-5.50); RED CELL DISTRIBUTION WIDTH 13.1 % (11.0-15.5); WHITE BLOOD COUNT (AUTO) 5.6 K/uL (4.8-10.8)
[2020-11-07 05:38] LABS: CREATININE 1.1 mg/dL (0.5-1.5); MAGNESIUM 1.1 mg/dL (1.80-2.40); POTASSIUM 3.3 mmol/L (3.5-5.1)
[2020-11-07] MEDS: MAGNESIUM 2GM PREMIX 50ML 50 ML IV PRN (06:19)
[2020-11-07] MEDS: POTASSIUM CHLORIDE 20MEQ/100ML 100 ML IV PRN (06:20)
[2020-11-07] MEDS: INSULIN HUMULIN R 100 UNIT/ML 3ML SQ SCH ×4 (06:34→21:00)
[2020-11-07] MEDS ORDERED: HYDROMORPHONE 1 MG INJ IVP PRN (07:00)
[2020-11-07] MEDS ORDERED: MORPHINE 2 MG SYG IVP PRN (07:00)
[2020-11-07] MEDS: FLUCONAZOLE 200 MG/NS 100 ML 100 ML IV SCH (09:00)
[2020-11-07] MEDS: LACTOBACILLUS RHAMNOSUS GG 1 EACH CAP.SPRINK PO SCH (09:00)
[2020-11-07] MEDS: FAMOTIDINE 20MG VIAL IV SCH (09:00)
[2020-11-07] MEDS: LINEZOLID 600 MG/ISO-OSM 300 ML IV SCH (09:00)
[2020-11-07] MEDS: METOPROLOL TARTRATE 50 MG TAB PO SCH ×2 (09:00→21:09)
[2020-11-07] MEDS: DRONABINOL 2.5 MG CAP PO SCH ×2 (09:00→21:09)
[2020-11-07] MEDS: ASPIRIN 81MG CHEW TAB PO SCH (09:00)
[2020-11-07] MEDS: BALSAM PERU/CASTOR OIL 60 GM TUBE TP SCH ×2 (09:00→21:20)
[2020-11-08 06:02] LABS: CREATININE 1.1 mg/dL (0.5-1.5)
[2020-11-08 06:03] VITALS: BP 137/51
[2020-11-08] MEDS: INSULIN HUMULIN R 100 UNIT/ML 3ML SQ SCH ×4 (06:03→22:00)
[2020-11-08] MEDS: LEVOTHYROXINE 50 MCG TABLET PO SCH (06:03)
[2020-11-08] MEDS: HYDRALAZINE 25MG TABLET PO SCH ×3 (06:03→21:33)
[2020-11-08 06:10] LABS: HEMATOCRIT 21.7 % (36-48); MEAN CORPUSCULAR HEMOGLOBIN 30.6 pg (27.0-33.0); MEAN CORPUSCULAR HGB CONC 34.6 g/dL (32.0-36.0); MEAN CORPUSCULAR VOLUME 88.6 fL (79-99); RED BLOOD CELL COUNT(AUTO) 2.45 MIL/uL (4.00-5.50); RED CELL DISTRIBUTION WIDTH 12.8 % (11.0-15.5); WHITE BLOOD COUNT (AUTO) 4.9 K/uL (4.8-10.8)
[2020-11-08] MEDS: POTASSIUM CHLORIDE 20MEQ/100ML 100 ML IV PRN ×2 (06:16→11:42)
[2020-11-08 08:00] VITALS: BP 143/64
[2020-11-08] MEDS: ASPIRIN 81MG CHEW TAB PO SCH (09:06)
[2020-11-08] MEDS: FLUCONAZOLE 200 MG/NS 100 ML 100 ML IV SCH (09:06)
[2020-11-08] MEDS: LACTOBACILLUS RHAMNOSUS GG 1 EACH CAP.SPRINK PO SCH (09:07)
[2020-11-08] MEDS: DRONABINOL 2.5 MG CAP PO SCH ×2 (09:07→21:32)
[2020-11-08] MEDS: METOPROLOL TARTRATE 50 MG TAB PO SCH ×2 (09:07→21:33)
[2020-11-08] MEDS: FAMOTIDINE 20MG VIAL IV SCH (09:07)
[2020-11-08 12:00] VITALS: BP 160/60
[2020-11-08] MEDS ORDERED: NITR0.4T50 SL (13:29)
[2020-11-08] MEDS: BALSAM PERU/CASTOR OIL 60 GM TUBE TP SCH ×3 (15:47→21:36)
[2020-11-08 16:00] VITALS: BP 166/73
[2020-11-08 19:33] VITALS: BP 167/71
[2020-11-09] VITALS (8 sets, daily range): BP systolic 97–177; BP diastolic 49–85
[2020-11-09] MEDS: LEVOTHYROXINE 50 MCG TABLET PO SCH (06:03)
[2020-11-09] MEDS: HYDRALAZINE 25MG TABLET PO SCH ×3 (06:10→21:44)
[2020-11-09] MEDS: INSULIN HUMULIN R 100 UNIT/ML 3ML SQ SCH ×4 (06:33→20:58)
[2020-11-09 08:44] LABS: MEAN CORPUSCULAR HEMOGLOBIN 29.7 pg (27.0-33.0); MEAN CORPUSCULAR HGB CONC 33.3 g/dL (32.0-36.0); RED BLOOD CELL COUNT(AUTO) 2.36 MIL/uL (4.00-5.50); RED CELL DISTRIBUTION WIDTH 13.2 % (11.0-15.5); WHITE BLOOD COUNT (AUTO) 5.1 K/uL (4.8-10.8)
[2020-11-09 08:54] LABS: CREATININE 1.1 mg/dL (0.5-1.5); POTASSIUM 3.7 mmol/L (3.5-5.1)
[2020-11-09] MEDS: DRONABINOL 2.5 MG CAP PO SCH ×2 (09:23→21:44)
[2020-11-09] MEDS: LACTOBACILLUS RHAMNOSUS GG 1 EACH CAP.SPRINK PO SCH (09:23)
[2020-11-09] MEDS: FAMOTIDINE 20MG VIAL IV SCH (09:24)
[2020-11-09] MEDS: ASPIRIN 81MG CHEW TAB PO SCH (09:24)
[2020-11-09] MEDS: METOPROLOL TARTRATE 50 MG TAB PO SCH ×2 (09:24→21:44)
[2020-11-09] MEDS: BALSAM PERU/CASTOR OIL 60 GM TUBE TP SCH ×3 (09:24→21:44)
[2020-11-09] MEDS: FLUCONAZOLE 200 MG/NS 100 ML 100 ML IV SCH (11:45)
[2020-11-09] MEDS ORDERED: 0.9% NACL 250ML 250 ML IV ONE (16:23)
[2020-11-10 04:18] VITALS: BP 155/59
[2020-11-10] MEDS: HYDRALAZINE 25MG TABLET PO SCH ×3 (05:29→20:10)
[2020-11-10] MEDS: INSULIN HUMULIN R 100 UNIT/ML 3ML SQ SCH ×4 (05:36→20:14)
[2020-11-10 07:30] VITALS: BP 170/64
[2020-11-10 08:58] LABS: HEMATOCRIT 26.8 % (36-48); MEAN CORPUSCULAR HGB CONC 33.6 g/dL (32.0-36.0); MEAN CORPUSCULAR VOLUME 89.3 fL (79-99); RED CELL DISTRIBUTION WIDTH 13.2 % (11.0-15.5); WHITE BLOOD COUNT (AUTO) 4.9 K/uL (4.8-10.8)
[2020-11-10 09:09] LABS: CREATININE 1.1 mg/dL (0.5-1.5); MAGNESIUM 1.4 mg/dL (1.80-2.40); POTASSIUM 3.4 mmol/L (3.5-5.1)
[2020-11-10] MEDS: FAMOTIDINE 20MG VIAL IV SCH (09:38)
[2020-11-10] MEDS: LACTOBACILLUS RHAMNOSUS GG 1 EACH CAP.SPRINK PO SCH (09:38)
[2020-11-10] MEDS: METOPROLOL TARTRATE 50 MG TAB PO SCH ×2 (09:38→20:10)
[2020-11-10] MEDS: ASPIRIN 81MG CHEW TAB PO SCH (09:38)
[2020-11-10] MEDS: FLUCONAZOLE 200 MG/NS 100 ML 100 ML IV SCH (09:38)
[2020-11-10] MEDS: DRONABINOL 2.5 MG CAP PO SCH ×2 (09:38→20:10)
[2020-11-10 11:30] VITALS: BP 158/58
[2020-11-10 16:00] VITALS: BP 165/69
[2020-11-10] MEDS: BALSAM PERU/CASTOR OIL 60 GM TUBE TP SCH ×3 (18:38→20:15)
[2020-11-10 19:35] VITALS: BP 158/68
[2020-11-10 23:15] VITALS: BP 138/87
[2020-11-11 03:37] VITALS: BP 150/76
[2020-11-11 07:00] VITALS: BP 175/73
[2020-11-11] MEDS: HYDRALAZINE 25MG TABLET PO SCH ×2 (07:17→21:46)
[2020-11-11] MEDS: INSULIN HUMULIN R 100 UNIT/ML 3ML SQ SCH ×3 (07:20→20:17)
[2020-11-11] MEDS: BALSAM PERU/CASTOR OIL 60 GM TUBE TP SCH ×2 (09:30→21:47)
[2020-11-11 11:00] VITALS: BP 173/66
[2020-11-11] MEDS: FAMOTIDINE 20MG VIAL IV SCH (12:21)
[2020-11-11] MEDS: LACTOBACILLUS RHAMNOSUS GG 1 EACH CAP.SPRINK PO SCH (12:21)
[2020-11-11] MEDS: FLUCONAZOLE 200 MG/NS 100 ML 100 ML IV SCH (12:21)
[2020-11-11] MEDS: ASPIRIN 81MG CHEW TAB PO SCH (12:21)
[2020-11-11] MEDS: METOPROLOL TARTRATE 50 MG TAB PO SCH ×2 (12:22→21:47)
[2020-11-11 16:00] VITALS: BP 146/89
[2020-11-11 19:38] VITALS: BP 173/72
[2020-11-11 23:54] VITALS: BP 161/67
[2020-11-12 04:52] VITALS: BP 151/61
[2020-11-12 06:10] LABS: HEMATOCRIT 25.5 % (36-48); MEAN CORPUSCULAR HEMOGLOBIN 30.2 pg (27.0-33.0); MEAN CORPUSCULAR HGB CONC 34.1 g/dL (32.0-36.0); MEAN CORPUSCULAR VOLUME 88.5 fL (79-99); RED BLOOD CELL COUNT(AUTO) 2.88 MIL/uL (4.00-5.50); RED CELL DISTRIBUTION WIDTH 13.2 % (11.0-15.5); WHITE BLOOD COUNT (AUTO) 6.4 K/uL (4.8-10.8)
[2020-11-12] MEDS: INSULIN HUMULIN R 100 UNIT/ML 3ML SQ SCH ×3 (06:23→21:00)
[2020-11-12] MEDS: HYDRALAZINE 25MG TABLET PO SCH (06:23)
[2020-11-12 06:32] LABS: CREATININE 0.9 mg/dL (0.5-1.5)
[2020-11-12 06:48] LABS: POTASSIUM 2.8 mmol/L (3.5-5.1)
[2020-11-12 07:00] VITALS: BP 159/70
[2020-11-12] MEDS ORDERED: MAGNESIUM 2GM PREMIX 50ML 50 ML IV PRN (07:30)
[2020-11-12] MEDS ORDERED: POTASSIUM CHLORIDE 20MEQ/100ML 100 ML IV PRN (07:30)
[2020-11-12] MEDS ORDERED: KCL 20 MEQ ERTAB PO PRN (07:30)
[2020-11-12] MEDS ORDERED: LIDOCAINE HCL-MPF 1% 2ML VIAL IV PRN (07:30)
[2020-11-12] MEDS: METOPROLOL TARTRATE 50 MG TAB PO SCH ×2 (08:43→21:27)
[2020-11-12] MEDS: FAMOTIDINE 20MG VIAL IV SCH (08:43)
[2020-11-12] MEDS: FLUCONAZOLE 200 MG/NS 100 ML 100 ML IV SCH (08:43)
[2020-11-12] MEDS: LACTOBACILLUS RHAMNOSUS GG 1 EACH CAP.SPRINK PO SCH (08:43)
[2020-11-12] MEDS: ASPIRIN 81MG CHEW TAB PO SCH (08:43)
[2020-11-12] MEDS: BALSAM PERU/CASTOR OIL 60 GM TUBE TP SCH ×3 (08:44→21:30)
[2020-11-12] MEDS: POTASSIUM CHLORIDE 10% ELIXIR 20 MEQ/15 ML UDCUP PO PRN (08:44)
[2020-11-12] MEDS ORDERED: AMLODIPINE 5 MG TAB PO SCH (09:00)
[2020-11-12 11:00] VITALS: BP 143/60
[2020-11-12 16:00] VITALS: BP 162/74
[2020-11-12 20:48] VITALS: BP 160/71
[2020-11-12 23:28] VITALS: BP 144/56
[2020-11-13 03:25] VITALS: BP 155/72
[2020-11-13 06:02] LABS: HEMATOCRIT 25.6 % (36-48); MEAN CORPUSCULAR HEMOGLOBIN 30.8 pg (27.0-33.0); MEAN CORPUSCULAR HGB CONC 34.4 g/dL (32.0-36.0); MEAN CORPUSCULAR VOLUME 89.5 fL (79-99); RED BLOOD CELL COUNT(AUTO) 2.86 MIL/uL (4.00-5.50); RED CELL DISTRIBUTION WIDTH 13.2 % (11.0-15.5); WHITE BLOOD COUNT (AUTO) 7.5 K/uL (4.8-10.8)
[2020-11-13 06:19] LABS: CREATININE 0.9 mg/dL (0.5-1.5); POTASSIUM 3.3 mmol/L (3.5-5.1)
[2020-11-13] MEDS: INSULIN HUMULIN R 100 UNIT/ML 3ML SQ SCH ×4 (07:17→21:00)
[2020-11-13 08:04] VITALS: BP 167/68
[2020-11-13] MEDS: BALSAM PERU/CASTOR OIL 60 GM TUBE TP SCH ×3 (09:00→22:36)
[2020-11-13] MEDS: FLUCONAZOLE 200 MG/NS 100 ML 100 ML IV SCH (09:23)
[2020-11-13] MEDS: FAMOTIDINE 20MG VIAL IV SCH (09:23)
[2020-11-13] MEDS: METOPROLOL TARTRATE 50 MG TAB PO SCH ×2 (09:23→22:23)
[2020-11-13] MEDS: AMLODIPINE 5 MG TAB PO SCH (09:23)
[2020-11-13] MEDS: LACTOBACILLUS RHAMNOSUS GG 1 EACH CAP.SPRINK PO SCH (09:23)
[2020-11-13 12:14] VITALS: BP 132/38
[2020-11-13 16:48] VITALS: BP 144/65
[2020-11-13 19:45] VITALS: BP 146/64
[2020-11-14 00:05] VITALS: BP 150/68
[2020-11-14 03:45] VITALS: BP 136/42
[2020-11-14 05:30] LABS: HEMATOCRIT 25.9 % (36-48); MEAN CORPUSCULAR HEMOGLOBIN 29.4 pg (27.0-33.0); MEAN CORPUSCULAR HGB CONC 32.8 g/dL (32.0-36.0); MEAN CORPUSCULAR VOLUME 89.6 fL (79-99); RED BLOOD CELL COUNT(AUTO) 2.89 MIL/uL (4.00-5.50); RED CELL DISTRIBUTION WIDTH 13.5 % (11.0-15.5); WHITE BLOOD COUNT (AUTO) 8.5 K/uL (4.8-10.8)
[2020-11-14 05:53] LABS: CREATININE 0.9 mg/dL (0.5-1.5); POTASSIUM 3.3 mmol/L (3.5-5.1)
[2020-11-14] MEDS: INSULIN HUMULIN R 100 UNIT/ML 3ML SQ SCH ×4 (06:31→21:00)
[2020-11-14 07:30] VITALS: BP 143/60
[2020-11-14] MEDS: LACTOBACILLUS RHAMNOSUS GG 1 EACH CAP.SPRINK PO SCH (09:27)
[2020-11-14] MEDS: METOPROLOL TARTRATE 50 MG TAB PO SCH (09:27)
[2020-11-14] MEDS: BALSAM PERU/CASTOR OIL 60 GM TUBE TP SCH ×3 (09:28→21:33)
[2020-11-14] MEDS: FLUCONAZOLE 200 MG/NS 100 ML 100 ML IV SCH (09:28)
[2020-11-14] MEDS: AMLODIPINE 5 MG TAB PO SCH (09:28)
[2020-11-14] MEDS: FAMOTIDINE 20MG VIAL IV SCH (09:28)
[2020-11-14 11:00] VITALS: BP 145/62
[2020-11-14] MEDS: POTASSIUM CHLORIDE 10% ELIXIR 20 MEQ/15 ML UDCUP PO PRN ×2 (14:57→17:19)
[2020-11-14 16:00] VITALS: BP 139/49
[2020-11-14 20:00] VITALS: BP 146/54
[2020-11-15] VITALS: BP 140/61
[2020-11-15 04:06] VITALS: BP 137/51
[2020-11-15] MEDS: INSULIN HUMULIN R 100 UNIT/ML 3ML SQ SCH ×3 (06:16→16:30)
[2020-11-15 06:31] LABS: CREATININE 0.9 mg/dL (0.5-1.5); POTASSIUM 3.8 mmol/L (3.5-5.1)
[2020-11-15 07:30] VITALS: BP 147/68
[2020-11-15] MEDS: FLUCONAZOLE 200 MG/NS 100 ML 100 ML IV SCH (10:39)
[2020-11-15] MEDS: FAMOTIDINE 20MG VIAL IV SCH (10:39)
[2020-11-15] MEDS: BALSAM PERU/CASTOR OIL 60 GM TUBE TP SCH ×2 (10:39→13:18)
[2020-11-15] MEDS: LACTOBACILLUS RHAMNOSUS GG 1 EACH CAP.SPRINK PO SCH (10:39)
[2020-11-15] MEDS: AMLODIPINE 5 MG TAB PO SCH (10:39)
[2020-11-15 11:00] VITALS: BP 157/69
[2020-11-15 20:00] VITALS: BP 133/55
== END 2020-11-15 22:05 | DRG 853 ==
LOC: EDH 19:28 → EDHIP 23:20 → 2CH 10-11 02:49 → 4BH 10-13 19:46 → 2CH 10-15 17:08 → 3BH 11-01 21:22
PROVIDERS: ADMIT Internal Medicine Critical Care Medicine; ATTEND Internal Medicine Critical Care Medicine
PROC: 30233N1 Transfusion of Nonautologous Red Blood Cells into Peripheral Vein, Percutaneous Approach (ICD-10-PCS; 2020-10-10)
PROC: 5A09457 Assistance with Respiratory Ventilation, 24-96 Consecutive Hours, Continuous Positive Airway Pressure (ICD-10-PCS; 2020-10-15)
PROC: 02HV33Z Insertion of Infusion Device into Superior Vena Cava, Percutaneous Approach (ICD-10-PCS; 2020-10-16)
PROC: B548ZZA Ultrasonography of Superior Vena Cava, Guidance (ICD-10-PCS; 2020-10-16)
PROC: 5A1955Z Respiratory Ventilation, Greater than 96 Consecutive Hours (ICD-10-PCS; principal; 2020-10-20)
PROC: 0BH17EZ Insertion of Endotracheal Airway into Trachea, Via Natural or Artificial Opening (ICD-10-PCS; 2020-10-20)
PROC: 5A09357 Assistance with Respiratory Ventilation, Less than 24 Consecutive Hours, Continuous Positive Airway Pressure (ICD-10-PCS; 2020-10-24)
PROC: 0DJ08ZZ Inspection of Upper Intestinal Tract, Via Natural or Artificial Opening Endoscopic (ICD-10-PCS; 2020-10-25)
PROC: 0DJD8ZZ Inspection of Lower Intestinal Tract, Via Natural or Artificial Opening Endoscopic (ICD-10-PCS; 2020-10-26)
PROC: 0HRKXK3 Replacement of Right Lower Leg Skin with Nonautologous Tissue Substitute, Full Thickness, External Approach (ICD-10-PCS; 2020-11-06)
PROC: 0LBV0ZZ Excision of Right Foot Tendon, Open Approach (ICD-10-PCS; 2020-11-06 19:14)
DX: A41.9 Sepsis, unspecified organism (principal); E43 Unspecified severe protein-calorie malnutrition; G93.41 Metabolic encephalopathy; N17.0 Acute kidney failure with tubular necrosis; R65.21 Severe sepsis with septic shock; J96.01 Acute respiratory failure with hypoxia; N18.6 End stage renal disease; J15.6 Pneumonia due to other Gram-negative bacteria; K27.4 Chronic or unspecified peptic ulcer, site unspecified, with hemorrhage; E87.1 Hypo-osmolality and hyponatremia; D68.59 Other primary thrombophilia; M62.82 Rhabdomyolysis; N39.0 Urinary tract infection, site not specified; D62 Acute posthemorrhagic anemia; L03.115 Cellulitis of right lower limb; M86.8X7 Other osteomyelitis, ankle and foot; I12.0 Hypertensive chronic kidney disease with stage 5 chronic kidney disease or end stage renal disease; E11.52 Type 2 diabetes mellitus with diabetic peripheral angiopathy with gangrene; E87.0 Hyperosmolality and hypernatremia; E87.3 Alkalosis; T87.81 Dehiscence of amputation stump; Y83.5 Amputation of limb(s) as the cause of abnormal reaction of the patient, or of later complication, without mention of misadventure at the time of the procedure; E11.51 Type 2 diabetes mellitus with diabetic peripheral angiopathy without gangrene; E11.22 Type 2 diabetes mellitus with diabetic chronic kidney disease; E11.69 Type 2 diabetes mellitus with other specified complication; L97.519 Non-pressure chronic ulcer of other part of right foot with unspecified severity; L97.529 Non-pressure chronic ulcer of other part of left foot with unspecified severity; I12.9 Hypertensive chronic kidney disease with stage 1 through stage 4 chronic kidney disease, or unspecified chronic kidney disease; Y95 Nosocomial condition; E11.40 Type 2 diabetes mellitus with diabetic neuropathy, unspecified; E11.621 Type 2 diabetes mellitus with foot ulcer; E78.5 Hyperlipidemia, unspecified; E03.9 Hypothyroidism, unspecified; K29.00 Acute gastritis without bleeding; K21.00 Gastro-esophageal reflux disease with esophagitis, without bleeding; R13.12 Dysphagia, oropharyngeal phase; T36.8X5A Adverse effect of other systemic antibiotics, initial encounter; R53.81 Other malaise; M60.9 Myositis, unspecified; K64.8 Other hemorrhoids; K64.4 Residual hemorrhoidal skin tags; Z20.822 Contact with and (suspected) exposure to COVID-19; Z98.62 Peripheral vascular angioplasty status; Z83.3 Family history of diabetes mellitus; Z79.82 Long term (current) use of aspirin; Z79.4 Long term (current) use of insulin; Z88.0 Allergy status to penicillin; Z88.2 Allergy status to sulfonamides; Y92.89 Other specified places as the place of occurrence of the external cause; Z79.01 Long term (current) use of anticoagulants; Z74.01 Bed confinement status; Z68.23 Body mass index [BMI] 23.0-23.9, adult
CPT/HCPCS: 31500; 36415; 36430; 36600; 43235; 45378; 70450; 70551; 71045; 71250; 71275; 73620; 73718; 76770; 80048; 80053; 80069; 80076; 80202; 81001; 82140; 82270; 82435; 82533; 82550; 82570; 82607; 82728; 82803; 82947; 82948; 83605; 83615; 83735; 83880; 83930; 83935; 84100; 84132; 84133; 84145; 84295; 84300; 84439; 84443; 84480; 84484; 85014; 85018; 85025; 85027; 85378; 85610; 85651; 85730; 86140; 86156; 86850; 86870; 86900; 86901; 86922; 86923; 87040; 87070; 87076; 87088; 87205; 87426; 92526; 92610; 93306; 93356; 93925; 94002; 94003; 94660; 94664; 97039; 99152; A4330; A4344; A6250; C1751; C1894; G0378; J0360; J1100; J1450; J1815; J1940; J2020; J2185; J2250; J2405; J2597; J2704; J2920; J3370; J3430; J3475; J3480; J3490; J7030; J7040; J7050; J7070; J7120; P9016; Q0167; Q9967; U0003

== ENCOUNTER → 2023-08-21 | Outpatient (CLI) | payer OTHER ==
[~2023-08-21] MED LIST changes: -CHLO25TA3 PO; -DOXY100T2 PO; -FLUC200T8 PO; -INSLAN SQ; -LEVO750T46 PO; -METO-391 PO; +NITR0.4T50 SL; -VALS320T16 PO
[2023-08-21 16:19] LABS: BASOPHILS # (AUTO) 0.02 K/uL (0.00-0.20); BASOPHILS % (AUTO) 0.2 % (0.0-5.0); EOSINOPHILS # (AUTO) 0.23 K/uL (0.00-0.70); EOSINOPHILS % (AUTO) 2.3 % (0.0-8.0); IMMATURE GRANULOCYTE ABSOLUTE 0.07 K/uL (0-1); LYMPHOCYTES # (AUTO) 3.4 K/uL (1.0-4.8); LYMPHOCYTES % (AUTO) 33.3 % (21.0-51.0); MEAN CORPUSCULAR HEMOGLOBIN 30.8 pg (27.0-33.0); MEAN CORPUSCULAR HGB CONC 32.2 g/dL (32.0-36.0); MEAN CORPUSCULAR VOLUME 95.8 fL (79-99); MONOCYTES # (AUTO) 0.9 K/uL (0.1-1.0); MONOCYTES % (AUTO) 9.3 % (3.0-13.0); NEUTROPHILS # (AUTO) 5.5 K/uL (1.8-7.7); NEUTROPHILS % (AUTO) 54.2 % (40.0-77.0); PLATELET COUNT (AUTO) 379 K/uL (130-400); RED BLOOD CELL COUNT(AUTO) 3.34 MIL/uL (4.00-5.50); WHITE BLOOD COUNT (AUTO) 10.1 K/uL (4.8-10.8)
[2023-08-21 16:36] LABS: INR < 0.93 (0.85-1.15); PROTHROMBIN TIME 10.8 SEC (9.6-11.6)
[2023-08-21 16:37] LABS: PARTIAL THROMBOPLASTIN TIME 30.4 SEC (26.3-35.5)
[2023-08-21 16:39] LABS: ALBUMIN 4.2 g/dL (3.5-5.0); BILIRUBIN,TOTAL 0.4 mg/dL (0.2-1.0); CREATININE 1.5 mg/dL (0.5-1.5); POTASSIUM 5.2 mmol/L (3.5-5.1); TOTAL PROTEIN, SERUM 7.9 g/dL (6.0-8.3)
== END | disposition home or self-care (01) ==
LOC: LAB 14:11
PROVIDERS: ATTEND Internal Medicine Cardiovascular Disease
DX: I70.211 Atherosclerosis of native arteries of extremities with intermittent claudication, right leg (principal); E11.51 Type 2 diabetes mellitus with diabetic peripheral angiopathy without gangrene; M79.604 Pain in right leg; M79.605 Pain in left leg; Z79.82 Long term (current) use of aspirin; Z79.899 Other long term (current) drug therapy
CPT/HCPCS: 36415; 80053; 85025; 85610; 85730

== ENCOUNTER → 2024-05-24 | Outpatient (CLI) | payer OTHER ==
[2024-05-24 13:10] LABS: CHOLESTEROL 144 mg/dL (<200); HDL CHOLESTEROL 66 mg/dL (35-85); LDL DIRECT 71 mg/dL (0-99); TRIGLYCERIDES 73 mg/dL (30-200)
== END | disposition home or self-care (01) ==
LOC: LAB 11:42
PROVIDERS: ATTEND Internal Medicine Cardiovascular Disease
DX: E78.2 Mixed hyperlipidemia (principal); I73.9 Peripheral vascular disease, unspecified; E11.65 Type 2 diabetes mellitus with hyperglycemia
CPT/HCPCS: 36415; 80061

== ENCOUNTER → 2024-08-20 | Outpatient (CLI) | payer OTHER ==
[2024-08-20 12:20] LABS: BASOPHILS # (AUTO) 0.04 K/uL (0.00-0.20); BASOPHILS % (AUTO) 0.4 % (0.0-5.0); EOSINOPHILS # (AUTO) 0.28 K/uL (0.00-0.70); HEMATOCRIT 32.6 % (36-48); IMMATURE GRANULOCYTE ABSOLUTE 0.05 K/uL (0-1); LYMPHOCYTES % (AUTO) 32.2 % (21.0-51.0); MEAN CORPUSCULAR HEMOGLOBIN 31.1 pg (27.0-33.0); MEAN CORPUSCULAR HGB CONC 32.5 g/dL (32.0-36.0); MEAN CORPUSCULAR VOLUME 95.6 fL (79-99); MONOCYTES # (AUTO) 0.9 K/uL (0.1-1.0); MONOCYTES % (AUTO) 9.7 % (3.0-13.0); NEUTROPHILS # (AUTO) 5.1 K/uL (1.8-7.7); NEUTROPHILS % (AUTO) 54.2 % (40.0-77.0); PLATELET COUNT (AUTO) 358 K/uL (130-400); RED BLOOD CELL COUNT(AUTO) 3.41 MIL/uL (4.00-5.50); RED CELL DISTRIBUTION WIDTH 12.9 % (11.0-15.5); WHITE BLOOD COUNT (AUTO) 9.4 K/uL (4.8-10.8)
[2024-08-20 12:54] LABS: ALBUMIN 3.8 g/dL (3.5-5.0); BILIRUBIN,TOTAL 0.6 mg/dL (0.2-1.0); CREATININE 1.3 mg/dL (0.5-1.0); POTASSIUM 4.3 mmol/L (3.5-5.1); TOTAL PROTEIN, SERUM 7.6 g/dL (6.0-8.3)
== END | disposition home or self-care (01) ==
LOC: LAB 09:58
PROVIDERS: ATTEND Internal Medicine Cardiovascular Disease
DX: I73.9 Peripheral vascular disease, unspecified (principal); N18.30 Chronic kidney disease, stage 3 unspecified
CPT/HCPCS: 36415; 80053; 80061; 85025

== ENCOUNTER → 2024-12-20 | Outpatient (CLI) | payer OTHER ==
[2024-12-20 12:50] LABS: ALBUMIN 3.8 g/dL (3.5-5.0); BILIRUBIN,TOTAL 0.6 mg/dL (0.2-1.0); CREATININE 1.6 mg/dL (0.5-1.0); POTASSIUM 5.4 mmol/L (3.5-5.1); TOTAL PROTEIN, SERUM 7.5 g/dL (6.0-8.3)
== END | disposition home or self-care (01) ==
LOC: LAB 10:10
PROVIDERS: ATTEND Internal Medicine Cardiovascular Disease
DX: E78.2 Mixed hyperlipidemia (principal)
CPT/HCPCS: 36415; 80053; 80061

== ENCOUNTER → 2024-12-27 | Outpatient (CLI) | payer OTHER ==
[2024-12-27 13:15] LABS: ALBUMIN 3.9 g/dL (3.5-5.0); BILIRUBIN,TOTAL 0.6 mg/dL (0.2-1.0); CREATININE 1.6 mg/dL (0.5-1.0); TOTAL PROTEIN, SERUM 7.7 g/dL (6.0-8.3)
== END | disposition home or self-care (01) ==
LOC: LAB 09:53
PROVIDERS: ATTEND Internal Medicine Cardiovascular Disease
DX: E78.2 Mixed hyperlipidemia (principal)
CPT/HCPCS: 36415; 80053; 80061

== ENCOUNTER → 2025-02-28 | Outpatient (CLI) | payer OTHER ==
--- NOTE | 2025-02-28 15:58 | HMCIMG ---
Exam Type: CT HEAD/BRAIN W/O CONTRAST Clinical Information: Transient visual loss, unspecified eye Comparison: None CT Dose Index (CTDI): 57.33 mGy Dose Length Product (DLP): 956.79 total mGy-cm Findings: There is low attenuation throughout the periventricular white matter locations, consistent with chronic small vessel ischemic changes. No acute intra- or extra-axial fluid collections are seen. There is no evidence of acute or chronic hemorrhage. There is no mass effect or shift of midline structures. There are no areas to suggest acute infarct. The skull windows show no significant abnormalities. IMPRESSION: 1. CHRONIC SMALL VESSEL ISCHEMIC CHANGES.
== END | disposition home or self-care (01) ==
LOC: RAH 14:57
PROVIDERS: ATTEND Internal Medicine
DX: I67.82 Cerebral ischemia (principal); H53.129 Transient visual loss, unspecified eye; R51.9 Headache, unspecified
CPT/HCPCS: 70450